=== PATIENT | female | born 1945 | race Caucasian/White ===

== ENCOUNTER → 2018-05-12 13:00 | Outpatient (CLI) | payer MEDICARE, SELFPAY ==
[2018-05-12 14:38] LABS: Free T4, Direct Thyroxine 0.58 ng/dL (0.78-2.19)
[2018-05-12 14:52] LABS: Thyroid Stimulating Hormone 2.02 uIU/mL (0.47-4.68)
[2018-05-14 16:49] LABS: Triiodothyronine T3 Total 56 ng/dL (76-181)
== END ==
PROVIDERS: PCP Internal Medicine; Visit Provider Internal Medicine
DX: E03.9 Hypothyroidism, unspecified (principal)
CPT/HCPCS: 36415; 84439; 84443; 84480

== ENCOUNTER 2019-01-17 19:33 | Inpatient (IN) | payer MEDICARE, SELFPAY ==
--- NOTE | 2019-01-17 19:54 | DI.RAD.S_ITS ---
PROCEDURE: XR HIP W PEL IF DONE LT 2V INDICATIONS: lt hip pain after fall TECHNIQUE: 2 views of the hip were acquired. COMPARISON: None. FINDINGS: Bones: Displaced proximal left femoral neck fracture with mild impaction the distal fracture fragment. Degenerative changes of the right hip. Remainder of the osseous structures appear intact. Soft tissues: No suspicious soft tissue calcifications or masses. IMPRESSION: Displaced, mildly impacted left femoral neck fracture. Dictated by: Jose Elias Mustafa M.D. on 01/17/2019 at 22:24 Approved by: Jose Elias Mustafa M.D. on 01/17/2019 at 22:26
[2019-01-17] MEDS: MORPHINE 4 MG/ML INJ IV ×2 (20:18→21:46)
[2019-01-17 20:34] VITALS: BP 199/75; PULSE 81; RESP 18; TEMP 36.8; O2SAT 99
--- NOTE | 2019-01-17 20:37 | ED_ITS ---
HPI - Extremity Injury (Lower) General Chief Complaint: Extremity Injury, Lower Stated Complaint: Fell today and hurt lft hip Time Seen by Provider: 01/17/19 20:15 Source: patient Mode of arrival: wheelchair Limitations: no limitations History of Present Illness HPI Narrative: 74-year-old female here for evaluation of left hip pain. Patient states that prior to arrival she was in her garage when the broom handle that she was using to sweep the floor broke and she fell forward landing on her left hip. She did not hit her head. No loss of consciousness. Was unable to ambulate afterwards. Sat on the floor for a period of time until a neighbor came over and helped her get into the car. She did arrive here to the emergency department by private vehicle. She is not on anticoagulation. Has not been able to place any pressure on her leg since then. Related Data Home Medications Medication Instructions Recorded Confirmed levothyroxine 75 mcg PO DAILY 01/17/19 01/17/19 Previous Rx's Medication Instructions Recorded paroxetine HCl [Paxil] 30 mg PO QDAY #90 tab 06/12/17 trazodone 50 mg OR HS #20 tab 09/02/17 Allergies Allergy/AdvReac Type Severity Reaction Status Date / Time shellfish derived Allergy Unknown Unverified 09/30/17 13:02 [SHELLFISH DERIVED] Review of Systems Constitutional Denies fever(s) and Denies headache(s) ENT Ears, Nose, Mouth, and Throat: Denies vertigo, Denies dizziness, Denies headache(s) and Denies disequilibrium Cardiovascular Denies chest pain and Denies dyspnea Respiratory Denies dyspnea Gastrointestinal Gastrointestinal: Denies abdominal pain Genitourinary Denies dysuria Musculoskeletal Reports myalgias (Left thigh) and Reports arthralgias (Left hip) Integumentary/Breasts Denies new lesions and Denies rash Neurologic Denies behavioral changes, Denies confusion, Denies vertigo, Denies dizziness, Denies headache(s) and Denies disequilibrium Psychiatric Denies behavioral changes and Denies confusion Hematologic/Lymphatic Denies easy bleeding and Denies easy bruising PFSH Medical History Hypothyroid (Acute) Social History marital status: lives independently: Yes Social History marital status: lives independently: Yes Exam Initial Vital Signs Initial Vital Signs: Vital Signs Temperature 98.2 F 01/17/19 20:34 Pulse Rate 81 01/17/19 20:34 Respiratory Rate 18 01/17/19 20:34 Blood Pressure 199/75 H 01/17/19 20:34 Pulse Oximetry 99 01/17/19 20:34 Const General: cooperative, comfortable, well developed, well groomed and No acute distress Orientation: alert, awake and oriented x3 HENMT Head: normal to inspection and normocephalic Face and sinus: normal facial exam Resp Effort & Inspection: normal respiratory effort Auscultation: clear to auscultation bilaterally Cardio Rate: regular rate Rhythm: regular rhythm Pulses: radial pulses present and dorsalis pedis present on the left GI Inspection: non-distended Palpation: soft and No firm Skin Lesions: no lesions Rashes: no rashes Neuro General: alert and awake Cognition: normal cognition Speech: speech normal Sensory Exam: no sensory deficits noted Extrem Other: Tenderness to palpation around the left hip. Left knee left ankle unremarkable. Psych Appearance: grossly normal and well kempt Course Orders Ordered: ED Orders 01/17/19 19:54 XR hip w pel if done LT 2V Stat 01/17/19 20:22 B Type Natriuretic Peptide Stat Basic Metabolic Panel Stat Complete Blood Count AUTO DIFF Stat Type and Screen Stat Sodium Chloride (Normal Saline 0.9%) 1,000 mls @ 125 mls/hr IV CONT RAVINDER Morphine Sulfate (Morphine) 4 mg IV Q4HR PRN PRN Reason: Pain, Mild (1-3) Ondansetron HCl (Zofran) 4 mg IV Q4HR PRN PRN Reason: Nausea And Vomiting Discontinued Medications Morphine Sulfate (Morphine) 4 mg IV NOW ONE Stop: 01/17/19 20:16 Last Admin: 01/17/19 20:18 Dose: 4 mg Morphine Sulfate (Morphine) 4 mg IV NOW ONE Stop: 01/17/19 21:40 Last Admin: 01/17/19 21:46 Dose: 4 mg Vital Signs - 8 hr 01/17/19 20:34 01/17/19 20:42 01/17/19 21:00 Temperature 98.2 F Pulse Rate 81 79 Pulse Rate [Left Dorsalis Pedis] 78 Respiratory Rate 18 18 Blood Pressure Blood Pressure [Left Arm] 199/75 H 191/82 H Pulse Oximetry 99 98 01/17/19 22:35 Temperature 98.3 F Pulse Rate 88 Pulse Rate [Left Dorsalis Pedis] Respiratory Rate 22 Blood Pressure 204/103 H Blood Pressure [Left Arm] Pulse Oximetry 99 MDM - Extremity Injury (Lower) Lab Data Attestation: I reviewed the patient's lab results. Result diagrams: 01/17/19 20:22 01/17/19 20:22 Lab Results 01/17/19 01/17/19 01/17/19 Range/Units 20:22 20:22 20:22 WBC 7.2 (4.5-11.0) X10^3/uL RBC 4.71 (4.0-5.2) X10^6/uL Hgb 14.7 (12.0-16.0) g/dL Hct 42.6 (36-46) % MCV 90.5 (80-100) fL MCH 31.3 (26-34) PG MCHC 34.6 (30-36) % RDW 12.9 (11.6-14.8) % Plt Count 179 (150-400) X10^3/uL Neut % (Auto) 67.7 (50-75) % Lymph % (Auto) 24.4 L (25-40) % [place] % (Auto) 6.2 (3-14) % Eos % (Auto) 1.0 L (2-4) % Baso % (Auto) 0.7 (0-2) % Neut # (Auto) 4900 (8962-9286) /uL Lymph # (Auto) 1800 (8891-0649) /uL [place] # (Auto) 400 (0-900) /uL Eos # (Auto) 100 (0-450) /uL Baso # (Auto) 0 (0-100) /uL Sodium 134 L (137-145) mmol/L Potassium 3.7 (3.4-5.1) mmol/L Chloride 100 (98-107) mmol/L Carbon Dioxide 28 (22-32) mmol/L BUN 19 H (7-17) mg/dL Creatinine 0.70 (0.52-1.04) mg/dL Estimated GFR > 60.0 (>60) mL/min BUN/Creatinine Ratio 27.1 H (6-22) Glucose 187 H (80-110) mg/dL Calcium 9.4 (8.4-10.2) mg/dL B-Natriuretic Peptide < 100 (<100) Blood Type O Positive Antibody Screen Negative Imaging Data X-ray hip: Radiologist's impression: [address] [address] XRay Report Signed Patient: Sierra Ventura MMR#: [id number] : 5Acct:[id number] Age/Sex: 74 / FDate of Service: 01/17/19 Loc: EP979-0 Accession Number: [id number] Procedure: XR hip w pel if done LT 2V Ordering Provider: Raul Raya D.O. PROCEDURE: XR HIP W PEL IF DONE LT 2V INDICATIONS: lt hip pain after fall TECHNIQUE: 2 views of the hip were acquired. COMPARISON: None. FINDINGS: Bones: Displaced proximal left femoral neck fracture with mild impaction the distal fracture fragment. Degenerative changes of the right hip. Remainder of the osseous structures appear intact. Soft tissues: No suspicious soft tissue calcifications or masses. IMPRESSION: Displaced, mildly impacted left femoral neck fracture. Dictated by: Jose Elias Mustafa M.D. on 01/17/2019 at 22:24 Approved by: Jose Elias Mustafa M.D. on 01/17/2019 at 22:26 MDM Narrative Medical decision making narrative: Patient with what appears to be mechanical fall. X-ray shows a left femoral neck fracture. Discussed the case with Dr. Rylee barrera with Orthopedics who did evaluate the x-rays. He will accept on to his service. Discussed the diagnosis in the admission with the patient her her bedside. Holding orders were placed. Care transition to admitting provider at time of admission. Patient and both expressed understanding and agreement with plan. Discharge Plan Departure Patient Disposition: Admitted As Inpatient Clinical Impression: Fracture of femoral neck, left Qualifiers: Encounter type: initial encounter Fracture type: closed Qualified Code(s): S72.002A - Fracture of unspecified part of neck of left femur, initial encounter for closed fracture Discharge Date/Time: 01/17/19 22:05 Interventions: ED Discharge Assessment Last Done: 01/17/19 22:05 Admit Date/Time: 01/17/19 21:20 Admit Provider: Charles Mares
[2019-01-17 20:42] VITALS: BP 191/82; PULSE 79; RESP 18; O2SAT 98
[2019-01-17 21:00] VITALS: PULSE 78
--- NOTE | 2019-01-17 21:27 | PC.NURSE ---
Pt unable to tolerate bedpan so brief placed per pt request.
[2019-01-17 21:37] LABS: Add Manual Diff / Slide Review NO; Basophils Absolute Auto 0 /uL (0-100); Basophils Percent Auto 0.7 % (0-2); Eosinophils Absolute Auto 100 /uL (0-450); Hematocrit 42.6 % (36-46); Hemoglobin 14.7 g/dL (12.0-16.0); Lymphocytes Absolute Auto 1800 /uL (1100-4500); Lymphocytes Percent Auto 24.4 % (25-40); Mean Corpuscular HGB Conc 34.6 % (30-36); Mean Corpuscular Hemoglobin 31.3 PG (26-34); Mean Corpuscular Volume 90.5 fL (80-100); Monocytes Absolute Auto 400 /uL (0-900); Monocytes Percent Auto 6.2 % (3-14); Neutrophils Absolute Auto 4900 /uL (1500-7000); Neutrophils Percent Auto 67.7 % (50-75); Platelet Count 179 X10^3/uL (150-400); Red Blood Cell Count 4.71 X10^6/uL (4.0-5.2); Red Cell Distribution Width 12.9 % (11.6-14.8); White Blood Cell Count 7.2 X10^3/uL (4.5-11.0)
--- NOTE | 2019-01-17 21:56 | PC.NURSE ---
PT requested pain medication and declined dia catheter at present and may request catheter in future. Pt given 4mg Morphine IV. Dr Raya aware.
[2019-01-17 22:02] LABS: B Type Natriuretic Peptide < 100 (<100)
[2019-01-17 22:22] LABS: BUN Creatinine Ratio 27.1 (6-22); Blood Urea Nitrogen 19 mg/dL (7-17); Calcium 9.4 mg/dL (8.4-10.2); Carbon Dioxide 28 mmol/L (22-32); Chloride 100 mmol/L (98-107); Estimated Glomerular Filt Rate > 60.0 mL/min (>60); Glucose 187 mg/dL (80-110); HEMOLYSIS 19 (0-50); Potassium 3.7 mmol/L (3.4-5.1); Sodium 134 mmol/L (137-145)
[2019-01-17 22:35] VITALS: BP 204/103; PULSE 88; RESP 22; TEMP 36.8; O2SAT 99
[2019-01-17 23:30] VITALS: BP 185/90
[2019-01-18] VITALS (16 sets, daily range): BP systolic 138–182; BP diastolic 69–89; PULSE 75–106; RESP 11–20; TEMP 36.1–37.2; O2SAT 2–100; BMI 24.9; BMI 26.1
[2019-01-18] MEDS: SODIUM CHLORIDE 0.9% 1,000 ML 125 ML IV ×2 (00:03→07:50)
[2019-01-18] MEDS: MORPHINE 4 MG/ML INJ IV ×5 (00:33→16:14)
--- NOTE | 2019-01-18 01:41 | PC.NURSE ---
0030 Pt. admitted to room 217 on 3-11 shift, admit assessment done @ 0000. Pt. C/O left hip pain, medicated with 4 mg. of Morphine IVP. Instructed to call if she needed any assistance, bedrest @ this time. NPO & instructed not to drink or ear anything. Pt. aware of planned surgery today. BLE's cold to touch applied warm blankets. Denies numbness to lt. foot, pedal pulses present, will cont. POC & monitor.
--- NOTE | 2019-01-18 08:46 | P.PN_ITS ---
Subjective Date Patient Seen: 01/18/19 Time Patient Seen: 08:43 Interval history: Patient brought into the hospital last night through the emergency room following a ground level fall in the garage at home. Diagnosis with displaced mildly impacted left femoral neck fracture. Dr. Mares was consulted by phone and reviewed x-ray. They plan is to have patient have a left hip hemiarthroplasty surgery later this afternoon by Dr. Mares. She is NPO at this time. She is receiving MS IV. States her hip pain has improved since admission to the hospital. She has not been out of bed. Exam Vital Signs (past 8 hours): - 01/18/19 00:47 01/18/19 04:00 Temperature 98.9 F Pulse Rate 92 H 85 Respiratory Rate 18 Blood Pressure 182/89 H 161/73 H Pulse Oximetry 93 Oxygen Delivery Method Room Air Narrative Exam Narrative: Alert, oriented in no acute distress lying in bed. Legs. No calf pain or swelling. Pulses symmetrical. Good sensation to touch to lower leg. Objective Labs Result Diagrams: 01/17/19 20:22 01/17/19 20:22 Labs: Laboratory Results - last 24 hr 01/17/19 01/17/19 01/17/19 20:22 20:22 20:22 WBC 7.2 RBC 4.71 Hgb 14.7 Hct 42.6 MCV 90.5 MCH 31.3 MCHC 34.6 RDW 12.9 Plt Count 179 Neut % (Auto) 67.7 Lymph % (Auto) 24.4 L [place] % (Auto) 6.2 Eos % (Auto) 1.0 L Baso % (Auto) 0.7 Neut # (Auto) 4900 Lymph # (Auto) 1800 [place] # (Auto) 400 Eos # (Auto) 100 Baso # (Auto) 0 Sodium 134 L Potassium 3.7 Chloride 100 Carbon Dioxide 28 BUN 19 H Creatinine 0.70 Estimated GFR > 60.0 BUN/Creatinine Ratio 27.1 H Glucose 187 H Calcium 9.4 B-Natriuretic Peptide < 100 Blood Type O Positive Antibody Screen Negative Assessment & Plan Assessment & Plan narrative: Plan. Patient will remain NPO. Continue with morphine IV as needed. Patient is scheduled tentatively for 1600 hours this afternoon for left hip hemiarthroplasty by Dr. Mares. Anticipate that she would be in the hospital for another 1-2 days after surgery and discharged home if stable. Quality VTE Deep Vein Thrombosis/Pulmonary Embolism Present on Admission: No
--- NOTE | 2019-01-18 11:16 | CM.DANOTE ---
DCP: Case received, EMR reviewed and met with patient. Introduced self and role. Was able to obtain health history and living situation from patient. Son as well as ex- were at bedside. DCP assessment completed with information currently available. Patient is a 74 year old female who admitted yesterday evening to the care of the hospitalist team. PCP: Dr. Mar. Payer: [employer] Medicare. Patient came to the hospital via family vehicle secondary to a ground level fall in her garage. She had been sweeping, and the handle broke off causing her to lose balance and land on her left hip. Patient holds diagnosis of a displaced proximal left femoral neck fracture. Patient is scheduled for surgery today at approximately 4:00. She is currently NPO. Met briefly with patient in her room. Awake and laying flat in the bed. She lives alone, her ex- Mauri was in the room, and son, Juanjo. She is independent. Discussed briefly the role of the regional planner, such as the possibility of her needing skilled rehab depending on how she does after surgery. She is hopeful that after she has the surgery she is able to go home. P: DCP to continue to follow closely. She will likely be working with physical therapy after surgery, and will see how she does. Constance Tracy RN/Invoice Clerk
--- NOTE | 2019-01-18 16:31 | DI.RAD.S_ITS ---
PROCEDURE: XR HIP LT 1V INDICATIONS: post op films TECHNIQUE: 2 view(s) of the hip acquired. COMPARISON: [facility], CR, XR HIP W PEL IF DONE LT 2V, 01/17/2019, 20:01. FINDINGS: Bones: Patient is status post left hip arthroplasty, with hardware components in expected positions. The hip joint appears congruent. The visualized bony structures appear intact. Soft tissues: Overlying postoperative changes are noted. No suspicious soft tissue densities. IMPRESSION: Left hip prosthesis in anatomic alignment. Dictated by: Loida Tsai M.D. on 01/18/2019 at 19:11 Approved by: Loida Tsai M.D. on 01/18/2019 at 19:12
[2019-01-18] MEDS: ONDANSETRON 4 MG/2 ML INJ IV (16:41)
[2019-01-18] MEDS: LACTATED RINGERS 1,000 ML 42 ML IV (16:41)
[2019-01-18] MEDS: CEFAZOLIN 2 GM/100 ML FROZ.PIGGY IV (17:15)
--- NOTE | 2019-01-18 17:49 | SUR.OPER ---
Lateral on padded OR bed. Gel axillary roll. Arms secured on padded armboard with pillow supporting top arm. Padded hip positioner braces x4 - anterior and posterior chest and pelvis. Additional gel pad used anterior pelvis. Gel pad under bottom leg from knee to foot and secured with tape over sheet.
--- NOTE | 2019-01-18 18:42 | PM.HP.1 ---
History of Present Illness Date Patient Seen: 01/18/19 Time Patient Seen: 17:00 Chief complaint: Fell today and hurt lft hip Narrative: t patient is a healthy 74-year-old woman who was working in her garage yesterday when she slipped and fell onto her left hip. She had immediate pain and inability to bear weight. She was seen emergency room where x-ray showed displaced femoral neck fracture. She denies having any previous problems with her hip. She denies hitting her head, loss of consciousness or any other injuries. Patient History Medical History Anxiety (Acute) Hypothyroid (Acute) Social History marital status: household members: significant other and none lives independently: Yes Smoking Status: Never smoker alcohol intake: current Family & Social History Social History: household members significant other,none Prior Living Arrangements House lives independently Yes Safety & Behavioral: Feels Safe in Current Yes Environment Been Physically Hurt or No Threatened By a Person Suicidal Ideation Description None Suicide Plan Description No Plan Tobacco & Substance use: Smoking Status Never smoker alcohol intake current alcohol intake frequency holiday/special occasion Substance Use Type does not use Meds Home Medications Medication Instructions Recorded Confirmed Type paroxetine HCl [Paxil] 30 mg PO QDAY #90 tab 06/12/17 01/18/19 Rx trazodone 50 mg OR HS #20 tab 09/02/17 01/18/19 Rx levothyroxine 75 mcg PO DAILY 01/17/19 01/18/19 History Allergies Allergy/AdvReac Type Severity Reaction Status Date / Time shellfish derived Allergy Intermediate Verified 01/17/19 23:52 [SHELLFISH DERIVED] Exam Vital Signs (past 8 hours): - 01/18/19 13:00 01/18/19 16:44 Temperature 98.6 F 97.9 F Pulse Rate 80 77 Respiratory Rate 18 16 Blood Pressure 159/79 H 161/75 H Pulse Oximetry 95 96 Oxygen Delivery Method Room Air Oxygen Flow Rate 0 Const General: cooperative and healthy appearing Orientation: alert and oriented x3 Extrem Other: The patient has shortening and rotation of the left hip. There is significant pain with any hip range of motion of the left hip. There is no significant skin lesions. Of the lower extremities are otherwise fully neurovascularly intact. There is expected swelling. See medical admission for detailed exam. Objective Labs Result Diagrams: 01/17/19 20:22 01/17/19 20:22 Labs: Laboratory Results - last 24 hr 01/17/19 01/17/19 01/17/19 20:22 20:22 20:22 WBC 7.2 RBC 4.71 Hgb 14.7 Hct 42.6 MCV 90.5 MCH 31.3 MCHC 34.6 RDW 12.9 Plt Count 179 Neut % (Auto) 67.7 Lymph % (Auto) 24.4 L [place] % (Auto) 6.2 Eos % (Auto) 1.0 L Baso % (Auto) 0.7 Neut # (Auto) 4900 Lymph # (Auto) 1800 [place] # (Auto) 400 Eos # (Auto) 100 Baso # (Auto) 0 Sodium 134 L Potassium 3.7 Chloride 100 Carbon Dioxide 28 BUN 19 H Creatinine 0.70 Estimated GFR > 60.0 BUN/Creatinine Ratio 27.1 H Glucose 187 H Calcium 9.4 B-Natriuretic Peptide < 100 Blood Type O Positive Antibody Screen Negative Assessment & Plan Assessment & Plan narrative: Displaced left femoral neck fracture. The nature of the fracture and treatment options were discussed with the patient and her family. Replacement with a Press-Fit hemiarthroplasty was recommended. I will be assisting in the surgery with Dr. Hayden acting as the primary physician. The nature of the procedure including the risks, benefits, alternatives, postoperative course and expected outcome were discussed and all questions answered. Time Spent With Patient Time with patient: less than 15 minutes Quality VTE Deep Vein Thrombosis/Pulmonary Embolism Present on Admission: No
--- NOTE | 2019-01-18 18:45 | P.OP_ITS ---
Operative Date/Time/Diagnoses Date of procedure: 01/18/19 Time of procedure: 18:37 Pre-op diagnosis: Left femoral neck fracture Post-op diagnosis: same Procedure & Clinicians Procedure: Left hip endoprosthesis for fracture (CPT code 53660 with special event assistant) Same procedure as scheduled: Yes Indications: 74-year-old female status post fall with displaced comminuted femoral neck fracture (Garden type 4). Discussed nature of condition, differential diagnosis, prognosis, and options. Patient elects to proceed with endoprosthetic replacement for hip fracture and gives informed consent. Surgeon: Magdy Hayden News Commentator: Charles Mares Anesthesia Type: General Operative Notes Closure Type: primary Specimen(s): none sent Prosthetic devices, grafts, tissues, transplants, or devices: Femoral component: [employer]ell [employer]hew Synergy stem, size 14 with a 47 mm +0 endoprosthetic head Estimated Blood Loss (mL): 100 Blood products transfused: none Procedure in detail: After satisfaction induction of anesthetic, and administration of IV antibiotics, the patient was positioned in the lateral decubitus position with all bony prominences well padded and pelvic position secured using a hip semiconductor bonder positioning device. [] hip and lower extremity prepped and draped in the usual sterile fashion, a longitudinal incision was created centered over the greater trochanter and carried sharply through the skin and subcutaneous tissues down to the fascia patricio which was divided longitudinally and retracted with a Charnley retractor. External rotators visualized, cut, tagged, and retracted posteriorly, then the capsule was cut in a T-type fashion with the corners tagged and retracted. Fracture level was identified and femoral neck cut made according to preoperative templating. Femoral head then removed with a corkscrew device. The femoral head was measured and femoral head sizers were placed in the acetabulum and a size 47 mm head had the best fit. Soft tissue then removed off the lateral femoral neck in the lateral neck was entered using a box osteotome. T-handled reamers placed down the canal followed by sequential broaching to 14. The broach was removed, and a permanent size 14 Parnell [employer] Nephew Synergy stem was selected and inserted with excellent position and fixation achieved. The 47 mm endoprosthetic head with the +0 collar was impacted on the femoral component and the hip reduced. After reduction, excellent leg length range of motion and stability characteristics were achieved and maintained. The hip was copiously irrigated, and the capsule repaired with #2 Ethibond, and the piriformis was repaired back to the greater trochanter with the same. Fascia patricio closed with interrupted #1 Ethibond sutures, and the subcutaneous tissues were closed in 2 layers of 0 Vicryl and 2 0 Vicryl. Skin was closed with angelica and sterile dressings applied. The anesthetic was terminated and the patient was taken to postanesthetic recovery in satisfactory condition. Complications: none Condition: stable Disposition: PACU Plan for aftercare: Patient will be admitted to the acute care [facility], and anticipate discharge on postop day 2 or 3 with follow-up in office in 10-14 days. Outpatient physical therapy will be arranged and patient will continue to observe posterior hip precautions. Patient will continue use of postoperative Lovenox for 10 days postop.
[2019-01-18] MEDS: LACTATED RINGERS 1,000 ML 125 ML IV (20:00)
[2019-01-18] MEDS: ASPIRIN EC 81 MG TABLET PO (21:53)
[2019-01-18] MEDS: ACETAMINOPHEN 325 MG TABLET 975 MG PO (21:53)
[2019-01-18] MEDS: TRAZODONE 50 MG TABLET PO (21:53)
[2019-01-19] VITALS (7 sets, daily range): BP systolic 108–149; BP diastolic 57–71; PULSE 64–87; RESP 15–18; TEMP 36.2–37; O2SAT 96–99
[2019-01-19] MEDS: CEFAZOLIN 2 GM/100 ML FROZ.PIGGY IV ×2 (01:21→09:02)
[2019-01-19] MEDS: LACTATED RINGERS 1,000 ML 125 ML IV (04:26)
--- NOTE | 2019-01-19 05:17 | PC.NURSE ---
Addendum entered by Max Faye R.N. 01/19/19 06:55: Spoke w/ pt about keeping pillow between legs to keep hips abducted and reminded her about use of IS. Addendum entered by Max Faye R.N. 01/19/19 05:21: Pt has aquacell dressing on that is clean/dry and intact. Original Note: Pt VSS, lung sounds clear, CMS positive. Pt denies pain or nausea. is at her side through the night. SCD's were applied bilaterally. Pt has dia. Pt is on LR at 125 ml/hr. Asked about pain multiple times through the night and pt. did not want pain meds, but does want some before PT in the AM. I told her that I would come back at 0655 before shift change to give pain meds.
[2019-01-19 05:28] LABS: Hemoglobin 12.8 g/dL (12.0-16.0)
[2019-01-19] MEDS: LEVOTHYROXINE 75 MCG TABLET PO (05:48)
[2019-01-19] MEDS: OXYCODONE IR 5 MG TABLET PO (06:50)
[2019-01-19] MEDS: SODIUM CHLORIDE 0.9% FLUSH 10 ML IV ×2 (08:57→20:57)
[2019-01-19] MEDS: ENOXAPARIN 40 MG/0.4 ML SYRINGE SUBCUT (08:58)
[2019-01-19] MEDS: ACETAMINOPHEN 325 MG TABLET 975 MG PO ×3 (08:59→20:56)
[2019-01-19] MEDS: PARoxetine 10 MG TABLET 30 MG PO (08:59)
[2019-01-19] MEDS: MELOXICAM 7.5 MG TABLET 15 MG PO (09:01)
[2019-01-19] MEDS: ASPIRIN EC 81 MG TABLET PO (09:02)
--- NOTE | 2019-01-19 09:38 | PM.PNPO.1 ---
Subjective Date Patient Seen: 01/19/19 Time Patient Seen: 09:39 Interval history: Pain mild. Denies fever chills. No nausea vomiting. Exam Vital Signs (past 8 hours): - 01/19/19 04:33 01/19/19 07:46 Temperature 97.5 F L 97.2 F L Pulse Rate 79 64 Respiratory Rate 18 16 Blood Pressure 141/67 H 132/62 Pulse Oximetry 98 99 Oxygen Delivery Method Room Air Oxygen Flow Rate 2 Narrative Exam Narrative: Pleasant 74-year-old female resting in bed in no apparent distress. Left hip dressing is clean, dry and intact. Sensation grossly intact distal left lower extremity. Motor functions intact. Left leg is warm and dry. Objective Labs Result Diagrams: 01/19/19 05:00 01/17/19 20:22 Labs: Laboratory Results - last 24 hr 01/19/19 05:00 Hgb 12.8 Hct 38.0 Assessment & Plan Post-op Postoperative Procedures Operation Date: 01/18/19 17:00 Actual Procedures Side Surgeon p Hip Hemiarthroplasty Dionisio-femoral neck fracture Left Magdy Hayden MD Postop day 1. Patient progressing as expected. Mobilize with physical therapy. Likely discharge home in 1-2 days. Posterior hip precautions. Quality VTE Deep Vein Thrombosis/Pulmonary Embolism Present on Admission: No
--- NOTE | 2019-01-19 11:27 | PT.IIE ---
Surgery Performed Operation Date: 01/18/19 17:00 Actual Procedures p Hip Hemiarthroplasty Dionisio-femoral neck fracture(Left) - Magdy Hayden MD Medical History (Last Reviewed 01/18/19 @ 18:43 by Charles Mares MD) Anxiety (Acute) Hypothyroid (Acute) Physical Therapy Inpatient Evaluation/Re-Eval M1 PT/OT-IP Prior Functional Status Start: 01/19/19 14:03 Freq: NEEDED Status: Active Protocol: Document 01/19/19 11:27 AB (Rec: 01/19/19 14:12 AB [id number]) Medical Review Prior Functional Status Medical History Reviewed Yes Communication able to make needs known Mobility and Gait pt stated tht she is independent with all mobilities and ambulation without AD Social History Household Members none Living Arrangements House Number of Floors (Floors) One Floor Number of Stairs To Enter/Railing? 1 step to enter Home Environment Standard Height Toilet Tub/Shower Home Equipment Straight Cane Additional Social History Comment pt stated that his son and ex- will stay with pt and assist her. M2 PT-IP Current Condition Start: 01/19/19 14:03 Freq: NEEDED Status: Active Protocol: Document 01/19/19 11:27 AB (Rec: 01/19/19 14:12 AB [id number]) Physical Therapy Current Condition Current Condition Evaluation Date 01/19/19 Treatment Diagnosis L femoral neck fx s/p L hip hemiarthroplasty; difficulty in walking Onset Date 01/18/19 Precautions Posterior Hip Precautions No Hip Flexion > 90 degrees No Hip Internal Rotation No Hip Adduction Weight Bearing Status Weight Bearing Status Weight Bear as Tolerated M3 PT-IP Subjective Start: 01/19/19 14:03 Freq: NEEDED Status: Active Protocol: Document 01/19/19 11:27 AB (Rec: 01/19/19 14:12 AB [id number]) Subjective Physical Therapy Visit Type Type Initial Evaluation Visit Start Time 11:27 Visit Stop Time 12:22 Total Visit Minutes 55 Number of CHILDBIRTH EDUCATOR Visits 0 Physical Therapy Visit Comments Patient Comments pt agreeable to do PT Therapy Pain Assessment Pain When Pain Assessed At Rest Pain Present Pain Present Pain Reported Location Left Hip Intensity 3 Scale Used Numeric (1 - 10) Pain Management Techniques Apply Cold Timing of Activity with Medications M4 PT-IP Mobility and Gait Start: 01/19/19 14:03 Freq: NEEDED Status: Active Protocol: Document 01/19/19 11:27 AB (Rec: 01/19/19 14:12 AB [id number]) PT-Bed Mobility Assessment Supine to Sit Supine to Sit Moderate Assistance 1 Person Assistance PT-Transfer Assessment Sit to and From Stand Sit to and from Stand Minimal Assistance 1 Person Assistance Use of Upper Extremities Equipment Transfer Assistive Device Gait Belt Front Wheeled Walker Orthotic/Prosthetic Devices or Brace: No Transfers Transfer Destination Chair Transfer Technique pt ambulated using FWW Transfer Ability Level of Assist Minimal Assistance Use of Upper Extremities Comments Mobility Comments pt requires max cues during mobility to adhere to posterior hip precautions Gait Assessment Gait Gait Assistance Required: Minimum Assistance Distance (Feet) 12 Able to Maintain Weight Bearing Status Yes During Gait Assistive Devices Assistive Device Gait Belt Front Wheeled Walker Orthotic/Prosthetic Devices or Brace: No Gait Deviations General Gait Pattern Antalgic Decreased Stride Length Decreased Feet Clearance Step-to Gait Factors Limiting Gait Function Factors Limiting Gait Function Decreased Activity Tolerance Decreased Strength Difficulty Following Directions Limited Range of Motion Pain Poor Balance Poor Safety Awareness Comments Gait Comments pt requires cues for safety and to maintain hip precautions PT-Balance Assessment Sitting Balance and Reactions Static Sitting Balance Ability Good Dynamic Sitting Balance Ability Good Standing Balance and Reactions Static Standing Balance Ability Fair Dynamic Standing Balance Ability Fair Device Used FWW M5 PT-IP Objective Assessments Start: 01/19/19 14:03 Freq: NEEDED Status: Active Protocol: Document 01/19/19 11:27 AB (Rec: 01/19/19 14:12 AB [id number]) Orientation Orientation/Cognition Level of Alertness Alert Orientation Name Place Situation Memory Description Short Term Impaired Strength Lower Extremity Strength Assessment Left Impaired Hip 3-/5 Knee 3+/5 Coordination Assessment Gross Coordination Gross Coordination WNL Sensation Assessment Sensation Gross Sensation WNL Muscle Tone Muscle Tone WNL Yes M6 PT-IP Treatment Start: 01/19/19 14:03 Freq: NEEDED Status: Active Protocol: Document 01/19/19 11:27 AB (Rec: 01/19/19 14:12 AB [id number]) Physical Therapy Treatment Exercises Exercises Quad Sets Heel Slides Education Education Provided Precautions Weight Bearing Status Post-Op Packet Safety M7 PT-IP Assessment and Plan Start: 01/19/19 14:03 Freq: NEEDED Status: Active Protocol: Document 01/19/19 11:27 AB (Rec: 01/19/19 14:12 AB [id number]) PT Summary Assessment and Plan Potential Rehabilitation Potential Good Status of Condition at Evaluation Stable Summary Impairments Pain ROM Strength Balance Coordination Sensation Tone Cognition Bed Mobility Transfers Gait Activity Tolerance Assessment Summary pt requiring min A and max cues during mobility. pt plans to go home with spouse/ son to assist her. will conduct caregiver training and stair climbing training prior to d/c. pt will also require outpt PT when pt goes home. pt also plans to borrow a FWW from her friend initially and then from the [facility] on thursday. Goals Bed Mobility Goal Standby Assistance Transfer Goal Standby Assistance Front Wheeled Walker Gait Goal Standby Assistance Front Wheel Walker Gait Distance 150 Other Goals up/down 1 step SBA using fWW Days to Meet Goals 5 Frequency of Treatment Frequency Of Treatment Twice a Day Treatment Plan Physical Therapy Treatment Plan Bed Mobility Training Transfer Training Gait Training Therapeutic Exercise Balance Retraining Post Op Education Discharge Planning Hot or Cold Pack Neuromuscular Re-ed Coordination Retraining Manual Therapy Recommendations To Nursing Amount of Assist Needed 1 Person Assist Discharge Recommendations PT Discharge Recommendations Home with Assistance Outpatient PT Equipment Needed for Home Before FWW: pt stated that she will Discharge borrow one
--- NOTE | 2019-01-19 11:38 | CM.DPC ---
Addendum entered by Rhonda Vinse LPN 01/19/19 11:44: Will be checking in with pt as her therapy proceeds and to assist with d/c issues and options. She just had surgery last evening to repair her fracture hip/posterior precautions are in place. Original Note: DCP: continued: case received, EMR reviewed. Discussed in Team Rounds. It is noted that pt did identify her post hospital plan as home: per her conversation with NAMAN/Kina Nolasco. She does live alone and it was unclear who might be assisting her in her recovery. PT has been ordered but those eval notes are not yet available. OT is not ordered; did see that sarahy Bates was rounding today for and have left him a vm requesting OT eval as [facility] and OT input will be most helpful in determining the appropriate d/c setting for pt and getting any needed authorization for same.
--- NOTE | 2019-01-19 15:41 | PT.IPTN ---
Surgery Performed Operation Date: 01/18/19 17:00 Actual Procedures p Hip Hemiarthroplasty Dionisio-femoral neck fracture(Left) - Magdy Hayden MD Physical Therapy Treatment Note M2 PT-IP Current Condition Start: 01/19/19 14:03 Freq: NEEDED Status: Active Protocol: Document 01/19/19 11:27 AB (Rec: 01/19/19 14:12 AB [id number]) Physical Therapy Current Condition Current Condition Evaluation Date 01/19/19 Treatment Diagnosis L femoral neck fx s/p L hip hemiarthroplasty; difficulty in walking Onset Date 01/18/19 Precautions Posterior Hip Precautions No Hip Flexion > 90 degrees No Hip Internal Rotation No Hip Adduction Weight Bearing Status Weight Bearing Status Weight Bear as Tolerated M3 PT-IP Subjective Start: 01/19/19 14:03 Freq: NEEDED Status: Active Protocol: Document 01/19/19 15:10 LJ (Rec: 01/19/19 15:41 LJ [id number]) Subjective Physical Therapy Visit Type Type Treatment Note Visit Start Time 15:10 Visit Stop Time 15:34 Total Visit Minutes 24 Number of VARNISH BLENDER Visits 1 Physical Therapy Visit Comments Patient Comments Pt willing to get out of the chair and ambulate in room. Stattes she is anxious about walking and still somewhat unclear about her precautions. Therapy Pain Assessment Pain When Pain Assessed At Rest Pain Present Pain Present Pain Reported M4 PT-IP Mobility and Gait Start: 01/19/19 14:03 Freq: NEEDED Status: Active Protocol: Document 01/19/19 15:10 LJ (Rec: 01/19/19 15:41 [id number]) PT-Bed Mobility Assessment Rolling Type of Rolling Log Rolling Level of Assist Minimal Assistance Sit to Supine Sit to Supine Minimal Assistance Scooting Scooting Up and Down in Bed Contact Guard Assistance PT-Transfer Assessment Sit to and From Stand Sit to and from Stand Contact Guard Assistance Use of Upper Extremities Equipment Transfer Assistive Device Gait Belt Front Wheeled Walker Orthotic/Prosthetic Devices or Brace: No Transfers Transfer Destination Bed Transfer Ability Level of Assist Contact Guard Assistance Use of Upper Extremities Comments Mobility Comments pt requires max cues during mobility to adhere to posterior hip precautions Gait Assessment Gait Gait Assistance Required: Contact Guard Assist Distance (Feet) 25 Able to Maintain Weight Bearing Status Yes During Gait Assistive Devices Assistive Device Gait Belt Front Wheeled Walker Orthotic/Prosthetic Devices or Brace: No Gait Deviations General Gait Pattern Antalgic Decreased Stride Length Decreased Feet Clearance Step-to Gait Factors Limiting Gait Function Factors Limiting Gait Function Decreased Activity Tolerance Decreased Strength Difficulty Following Directions Limited Range of Motion Pain Poor Balance Poor Safety Awareness Comments Gait Comments pt requires cues for safety and to maintain hip precautions. Able to demonstrate understanding of precautions during ambulation and return to bed. M5 PT-IP Objective Assessments Start: 01/19/19 14:03 Freq: NEEDED Status: Active Protocol: Document 01/19/19 11:27 AB (Rec: 01/19/19 14:12 AB [id number]) Orientation Orientation/Cognition Level of Alertness Alert Orientation Name Place Situation Memory Description Short Term Impaired Strength Lower Extremity Strength Assessment Left Impaired Hip 3-/5 Knee 3+/5 Coordination Assessment Gross Coordination Gross Coordination WNL Sensation Assessment Sensation Gross Sensation WNL Muscle Tone Muscle Tone WNL Yes M6 PT-IP Treatment Start: 01/19/19 14:03 Freq: NEEDED Status: Active Protocol: Document 01/19/19 15:10 LJ (Rec: 01/19/19 15:41 LJ [id number]) Physical Therapy Treatment Exercises Exercises Ankle Pumps Gluteal Sets Quad Sets Heel Slides Education Education Provided Precautions Weight Bearing Status Post-Op Packet Safety M7 PT-IP Assessment and Plan Start: 01/19/19 14:03 Freq: NEEDED Status: Active Protocol: Document 01/19/19 15:10 LJ (Rec: 01/19/19 15:41 LJ [id number]) PT Summary Assessment and Plan Potential Rehabilitation Potential Good Status of Condition at Evaluation Stable Summary Impairments Pain ROM Strength Balance Coordination Sensation Tone Cognition Bed Mobility Transfers Gait Activity Tolerance Assessment Summary Pt improved with mobility and understanding of precautions. Still anxious about ambulation but was able to state precautions during mobility step by step. Required CGA to HAYDEE for all ambulation and bed mobility. Goals Bed Mobility Goal Standby Assistance Transfer Goal Standby Assistance Front Wheeled Walker Gait Goal Standby Assistance Front Wheel Walker Gait Distance 150 Other Goals up/down 1 step SBA using fWW Days to Meet Goals 5 Frequency of Treatment Frequency Of Treatment Twice a Day Treatment Plan Physical Therapy Treatment Plan Bed Mobility Training Transfer Training Gait Training Therapeutic Exercise Balance Retraining Post Op Education Discharge Planning Hot or Cold Pack Neuromuscular Re-ed Coordination Retraining Manual Therapy Recommendations To Nursing Amount of Assist Needed 1 Person Assist Discharge Recommendations PT Discharge Recommendations Home with Assistance Outpatient PT Equipment Needed for Home Before FWW: pt stated that she will Discharge borrow one
--- NOTE | 2019-01-19 18:43 | PC.NURSE ---
Evening Shift Note- Patient alert and oriented and able to make needs known to staff. Patient pleasent, calm, and cooperative with care. No complaints of pain or discomfort at this time. No complaints of N/V. Patient sating 98% on roomair. lung sounds clear throughout. Aquacell dressing to left hip C/D/I. Steen care provided. Steen patent and set to gravity to drain. Safety measures in place. Patient calls appropriatly for assistance. Call perea and phone within reach. will continue to monitor.
[2019-01-19] MEDS: TRAZODONE 50 MG TABLET PO (20:57)
[2019-01-20 05:40] VITALS: BP 136/56; PULSE 78; RESP 17; TEMP 37.1; O2SAT 97
[2019-01-20] MEDS: OXYCODONE IR 5 MG TABLET PO (05:49)
--- NOTE | 2019-01-20 06:17 | PC.NURSE ---
Bit Tapper Note: 0000: Sleeping; respirations unlabored. Not disturbed at this time. 0200: Vital signs stable. IV in place in rt AC. Dressing to lt hip intact, with small amt old drainage. SCDs on. Pt denies pain or discomfort at this time. 0600: Awake, ivon care and dia cath care given. Pt states she is having pain in lt hip: medicated with Oxycodone 5mg po.
[2019-01-20] MEDS: MELOXICAM 7.5 MG TABLET 15 MG PO (07:55)
[2019-01-20] MEDS: LEVOTHYROXINE 75 MCG TABLET PO (07:55)
[2019-01-20 08:10] VITALS: BP 109/52; PULSE 77; RESP 16; TEMP 36.9; O2SAT 95
[2019-01-20] MEDS: PARoxetine 10 MG TABLET 30 MG PO (10:05)
[2019-01-20] MEDS: ACETAMINOPHEN 325 MG TABLET 975 MG PO ×3 (10:05→21:40)
[2019-01-20] MEDS: SODIUM CHLORIDE 0.9% FLUSH 10 ML IV ×2 (10:05→21:41)
[2019-01-20] MEDS: ENOXAPARIN 40 MG/0.4 ML SYRINGE SUBCUT (10:06)
--- NOTE | 2019-01-20 11:14 | PM.PNPO.1 ---
Subjective Date Patient Seen: 01/20/19 Time Patient Seen: 11:14 Interval history: Hospital day 3, postop day 2 following left hip femoral neck fracture with hemiarthroplasty done by Dr. Hyaden. Patient is being stable postoperatively. She has worked with PT but feels that she needs a little more strengthening before going home. Her is concerned about having her at home at this time. She does have Steen catheter in place. Exam Vital Signs (past 8 hours): - 01/20/19 05:40 01/20/19 08:10 Temperature 98.8 F 98.4 F Pulse Rate 78 77 Respiratory Rate 17 16 Blood Pressure 136/56 L 109/52 L Pulse Oximetry 97 95 Fraction of Inspired Oxygen 21 Oxygen Delivery Method Room Air Oxygen Flow Rate 0 Narrative Exam Narrative: Alert, oriented no acute distress resting in chair. Legs. Bulky dressing to left lateral hip is dry without drainage or inflammation. No calf pain or swelling. Pulses symmetrical. Patient able to do full leg extension from sitting position. Objective Labs Result Diagrams: 01/19/19 05:00 01/17/19 20:22 Assessment & Plan Post-op Postoperative Procedures Operation Date: 01/18/19 17:00 Actual Procedures Side Surgeon p Hip Hemiarthroplasty Dionisio-femoral neck fracture Left Magdy Hayden MD Plan: Patient will work with PT more today. DC Steen catheter. She will need appointment at [facility] in [place] and also follow-up appointment at our office in 2 weeks. Anticipate discharge home tomorrow if she is stable. Quality VTE Deep Vein Thrombosis/Pulmonary Embolism Present on Admission: No
--- NOTE | 2019-01-20 11:17 | P.PN_ITS ---
Subjective Date Patient Seen: 01/20/19 Time Patient Seen: 11:14 Interval history: Hospital day 3, postop day 2 following left hip femoral neck fracture with hemiarthroplasty done by Dr. Hayden. Patient is being stable postoperatively. She has worked with PT but feels that she needs a little more strengthening before going home. Her is concerned about having her at home at this time. She does have Steen catheter in place. Exam Vital Signs (past 8 hours): - 01/20/19 05:40 01/20/19 08:10 Temperature 98.8 F 98.4 F Pulse Rate 78 77 Respiratory Rate 17 16 Blood Pressure 136/56 L 109/52 L Pulse Oximetry 97 95 Fraction of Inspired Oxygen 21 Oxygen Delivery Method Room Air Oxygen Flow Rate 0 Narrative Exam Narrative: Alert, oriented no acute distress resting in chair. Legs. Bulky dressing to left lateral hip is dry without drainage or inflammation. No calf pain or swelling. Pulses symmetrical. Patient able to do full leg extension from sitting position. Objective Labs Result Diagrams: 01/19/19 05:00 01/17/19 20:22 Assessment & Plan Post-op Postoperative Procedures Operation Date: 01/18/19 17:00 Actual Procedures Side Surgeon p Hip Hemiarthroplasty Dionisio-femoral neck fracture Left Magdy Hayden MD Plan: Patient will work with PT more today. DC Steen catheter. She will need appointment at [facility] in [place] and also follow-up a ppointment at our office in 2 weeks. Anticipate discharge home tomorrow if she is stable. Quality VTE Deep Vein Thrombosis/Pulmonary Embolism Present on Admission: No
[2019-01-20 11:20] VITALS: BP 148/74; PULSE 101; RESP 16; TEMP 37; O2SAT 99
--- NOTE | 2019-01-20 11:42 | OT.IP.EVAL ---
Current Diagnoses Fracture of unspecified part of neck of left femur, initial encounter for closed fracture (01/17/19) Surgery Performed Operation Date: 01/18/19 17:00 Actual Procedures p Hip Hemiarthroplasty Dionisio-femoral neck fracture(Left) - Magdy Hayden MD Past Medical History (Last Reviewed 01/18/19 @ 18:43 by Charles Mares MD) Anxiety (Acute) Hypothyroid (Acute) Occupational Therapy Inpatient Evaluation/Re-Eval M1 PT/OT-IP Prior Functional Status Start: 01/19/19 14:03 Freq: NEEDED Status: Active Protocol: Document 01/20/19 11:42 PJM (Rec: 01/20/19 17:21 PJM [id number]) Medical Review Prior Functional Status Medical History Reviewed Yes Communication WNL Mobility and Gait Pt states she is independent with all mobility and ambulation without AD. Activities of Daily Living and IADL's Pt indep with all self care, IADLS, driving. Social History Household Members none Living Arrangements House Number of Floors (Floors) One Floor Number of Stairs To Enter/Railing? 1 step to enter Home Environment Standard Height Toilet Tub/Shower Home Equipment Straight Cane Employment Status Retired Additional Social History Comment Pt states that her ex- will stay with her and assist PRN.Son coming from [place] over weekend and can also assist PRN. M2 OT-IP Current Condition Start: 01/20/19 17:00 Freq: Status: Active Protocol: Document 01/20/19 11:42 PJM (Rec: 01/20/19 17:21 PJM [id number]) Occupational Therapy Current Condition Current Condition Evaluation Date 01/20/19 Treatment Diagnosis decreased self care, mobility s/p L hip fx with hemiathroplasty Diagnosis Onset Date 01/18/19 Post Operative Precautions Posterior Hip Precautions No Hip Flexion > 90 degrees Weight Bearing Status Weight Bearing Status Weight Bear as Tolerated M3 OT- IP Subjective and Pain Start: 01/20/19 17:00 Freq: Status: Active Protocol: Document 01/20/19 11:42 PJM (Rec: 01/20/19 17:21 PJM [id number]) OT- Subjective Occupational Therapy Visit Type Type Initial Evaluation Visit Start Time 10:30 Visit Stop Time 11:42 Total Visit Minutes 72 Occupational Therapy Visit Comments Patient Comments I have to remember all these rules. Patient/Caregiver Goals to return to independence, living alone OT Pain Assessment Pain When Pain Assessed After Treatment Pain Present Pain Present Pain Reported Location Left Hip Intensity 4 Scale Used Numeric (1 - 10) Description Aching Acute Pain Behaviors Guarding Management Techniques Distraction Re-positioning Timing of Activity with Medications M4 OT- IP ADL's Start: 01/20/19 17:00 Freq: Status: Active Protocol: Document 01/20/19 11:42 PJM (Rec: 01/20/19 17:21 PJ [id number]) OT [id number] General Evaluation Self-Feeding Ability Independent OT ADL-Grooming General Evaluation Grooming Ability Standby Assistance Areas Needing Assistance Combing/Brushing Hair Comments OT Grooming Comments using wheelchair van operator first responder standing at sink, one slight loss of balance backwards, pt aware and self corrected; needs verbal cues to avoid twisting. OT ADL-Oral Care General Eval Oral Care Ability Independent Comments Oral Care Comments standing at sink OT ADL-Dressing General Eval Upper Body Dressing Ability Independent Lower Body Dressing Ability Minimal Assistance Areas Needing Assistance Bra Pull-Over Shirt Underpants/Brief Pants/Shorts Socks Assistive Devices Dressing Assistive Devices Long Handled Shoe Horn Commercial Construction Superintendent Sock Aid Comments OT Dressing Comments Began education re: adapted ADL techniques with log brander, sock aid, long shoe horn provided. Pt needs mod verbal cues and intermittent min assist for unfamiliar techniques. OT ADL-Toileting General Evaluation Toileting Ability Independent Comments OT Toileting Comments after education re: posterior hip precautions; ex to obtain BSC for use over toilet from [employer] OT ADL-Bathing Bathing Type Bathing Type Sponge Bath Devices Bathing Equipment Long Handled Sponge or Food Production Machine Operator Held Shower Sprayer Tub Transfer Bench Rinse Free Shampoo Cap Comments OT Bathing Comments to be assessed tomorrow; ex to obtain transfer tub bench. Provided education re: tub transfer bench use, precautions and methods to keep floor dry with shower curtain adaptations and use of shampoo cap. M5 OT- IP IADL's Start: 01/20/19 17:00 Freq: Status: Active Protocol: Document 01/20/19 11:42 PJM (Rec: 01/20/19 17:21 PJ [email or web address]) OT-Instrumental Activities of Daily Living Deficits IADL Deficits Identified Deficits Home Safety Awareness Awareness of Need for Assistance at Home Good Awareness Ability to Problem Solve Emergency Able to Problem Solve Situations Medication Management Medication Management No Deficits Identified Money Management Money Management No Deficits Identified Meal Preparation Meal Preparation Caregiver Provides Assist Meal Preparation Comments family to assist until pt able Wood Window And Door Craftsman Wood Window And Door Craftsman Caregiver Provides Assist Wood Window And Door Craftsman Comments family to assist until pt able Driving Driving Caregiver Provides Assist Driving Comments family to assist until pt able M6 OT- IP Functional Cognition Start: 01/20/19 17:00 Freq: Status: Active Protocol: Document 01/20/19 11:42 PJM (Rec: 01/20/19 17:21 PJ [id number]) Cognitive Factors Limiting Selfcare Function Cognitive Ability Level of Alertness Alert Attention Span Ability Capable of Focused Attention Capable of Sustained Attention Ability to Follow Commands Able to Follow Multi-Step Commands Memory Description No Deficits Noted Safety Awareness No Deficits Noted Problem Solving Ability Needs Assist to Identify Solutions Cognitive Comments Cognitive Assessment Comments Cognition appears WFL. Pt needs min cues to avoid twisting and follow new posterior hip precautions. OT- Vision and Hearing OT- Hearing Assessment OT- Hearing Assessment WFL OT- Vision Assessment Visual Acuity WFL Glasses All The Time M7 OT- IP Mobility and Balance Start: 01/20/19 17:00 Freq: Status: Active Protocol: Document 01/20/19 11:42 PJM (Rec: 01/20/19 17:21 PJ [email or web address]) OT-Transfer Assessment Sit to and From Stand Sit to and from Stand Standby Assistance 1 Person Assistance Transfers Transfer Ability Standby Assistance 1 Person Assistance Technique Transfer Destination Chair Toilet Transfer Technique Stand Step Pivot Devices Transfer Assistive Devices Gait Belt Front Wheeled Walker OT- Gait Assessment Gait Gait Assistance Required: Standby Assistance Distance (Feet) 30 Assistive Devices Assistive Device Gait Belt Front Wheeled Walker Comments Gait Ability Comments Provided education/ verbal cues for gait sequence. OT- Balance Assessment Sitting Balance and Reactions Static Sitting Balance Ability Good Dynamic Sitting Balance Ability Good Standing Balance and Reactions Static Standing Balance Ability Good Dynamic Standing Balance Ability Fair Comments Other Balance Tests/Deviations/Treatment one mild loss of balance : backwards while standing at sink drying hair, pt self corrected M8 OT- IP Objective Assessments Start: 01/20/19 17:00 Freq: Status: Active Protocol: Document 01/20/19 11:42 PJM (Rec: 01/20/19 17:21 PJ [id number]) OT Gross Range of Motion Upper Extremity Range of Motion Assessment Within Functional Limits OT Strength Upper Extremity Strength Assessment Within Functional Limits Hand Test Consultant Strength Hand Dominance Right OT- Coordination Assessment Comments Coordination Comments BUE WNL OT-Muscle Tone Assessment Muscle Tone WNL Yes OT Sensation Assessment Comments Summary Comments BUE WNL per pt Edema Edema Absent M9 OT- IP Assessment and Plan Start: 01/20/19 17:00 Freq: Status: Active Protocol: Document 01/20/19 11:42 PJM (Rec: 01/20/19 17:21 PJM [email or web address]) OT Summary Assessment and Plan Potential Rehabilitation Potential Excellent Analytic Complexity at Evaluation Low Summary OT Impairments Pain Balance Functional Mobility Dressing Toileting Bathing Toilet Transfers Shower Transfers Progress Towards Goals Progressing Toward Goals Assessment Summary Low complexity OT assessment completed on this 74 yr old woman s/p R hip fx with hemiarthroplasty with emphasis on new posterior hip precautions. Pt and ex educated re: precautions, minimum seat heights, optimal chair and clothing selection, adapted techniques for dressing, bathing, toileting, bathroom safety and dressing equipment options. Pt will benefit from one additional OT visit for for further education re: adapted techniques for showering, dressing and car transfers tomorrow. Pt plans to discharge home with 24 hr assist from ex and son PRN. Goals Grooming Goal Independent Dressing Goal Independent Long Handled Shoe Horn Commercial Construction Superintendent Sock Aid Toileting Goal Independent Bathing Goal Standby Assistance Hand Held Shower Sprayer Long Handled Sponge or [place] Toilet Transfer Goal Independent Bedside Commode Shower Transfer Goal Standby Assistance Patient/Caregiver Education Goal Demonstrate Post-Op Precautions Demonstrate Energy Conservation and Pacing Caregiver Independent Assisting Patient OT-Other Goals Pt will use bedside commode over toilet at home to increase height and provide armrests. Days to Meet Goals 1 Frequency of Treatment Frequency Of Treatment Once a Day Treatment Plan OT Treatment Plan ADL Training Functional Mobility Patient/Family Education Discharge Planning Discharge Recommendations OT Discharge Recommendations Home with / Assist Home Equipment Needs transfer tub bench, BSC over toilet, handheld shower lower body dressing equipt provided
--- NOTE | 2019-01-20 12:13 | PT.IPTN ---
Current Diagnoses Fracture of unspecified part of neck of left femur, initial encounter for closed fracture (01/17/19) Surgery Performed Operation Date: 01/18/19 17:00 Actual Procedures p Hip Hemiarthroplasty Dionisio-femoral neck fracture(Left) - Magdy Hayden MD Physical Therapy Treatment Note M2 PT-IP Current Condition Start: 01/19/19 14:03 Freq: NEEDED Status: Active Protocol: Document 01/19/19 11:27 AB (Rec: 01/19/19 14:12 AB [id number]) Physical Therapy Current Condition Current Condition Evaluation Date 01/19/19 Treatment Diagnosis L femoral neck fx s/p L hip hemiarthroplasty; difficulty in walking Onset Date 01/18/19 Precautions Posterior Hip Precautions No Hip Flexion > 90 degrees No Hip Internal Rotation No Hip Adduction Weight Bearing Status Weight Bearing Status Weight Bear as Tolerated M3 PT-IP Subjective Start: 01/19/19 14:03 Freq: NEEDED Status: Active Protocol: Document 01/20/19 11:30 HH (Rec: 01/20/19 12:13 [id number]) Subjective Physical Therapy Visit Type Type Treatment Note Visit Start Time 11:30 Visit Stop Time 12:00 Total Visit Minutes 30 Number of RUG INSPECTOR HELPER Visits 0 Physical Therapy Visit Comments Patient Comments Agreeable to mobilize with PT Therapy Pain Assessment Pain When Pain Assessed During Mobility Pain Present Pain Present Pain Reported Location Left Hip Intensity 2 Scale Used Numeric (1 - 10) Pain Management Techniques Apply Cold Timing of Activity with Medications M4 PT-IP Mobility and Gait Start: 01/19/19 14:03 Freq: NEEDED Status: Active Protocol: Document 01/20/19 11:30 HH (Rec: 01/20/19 12:13 [id number]) PT-Transfer Assessment Sit to and From Stand Sit to and from Stand Standby Assistance 1 Person Assistance Use of Upper Extremities Equipment Transfer Assistive Device Gait Belt Front Wheeled Walker Orthotic/Prosthetic Devices or Brace: No Transfers Transfer Destination Chair Transfer Ability Level of Assist Standby Assistance 1 Person Assistance Use of Upper Extremities Comments Mobility Comments Pt is able to recall 3/3 precautions. SBA for transfers . Gait Assessment Gait Gait Assistance Required: Standby Assistance Distance (Feet) 300 Able to Maintain Weight Bearing Status Yes During Gait Assistive Devices Assistive Device Gait Belt Front Wheeled Walker Orthotic/Prosthetic Devices or Brace: No Gait Deviations General Gait Pattern Antalgic Decreased Stride Length Decreased Feet Clearance Step-to Gait Factors Limiting Gait Function Factors Limiting Gait Function Decreased Activity Tolerance Decreased Strength Difficulty Following Directions Limited Range of Motion Pain Poor Balance Poor Safety Awareness Comments Gait Comments Pt amb with FWW x [address]. able to improve her step length which is close to her baseline gait speed. Stair Climbing Assessment Evaluation Level of Assist On Stairs Contact Guard Assistance Devices Stair Climbing Assistive Devices Front Wheel Walker Technique/Endurance Stair Climbing Direction Ascend and Descend Stair Climbing Technique Step to Step Number of Steps Climbed 1 Stair Climbing Set # Repetitions (reps) 1 Comments Stair Climbing Comments cues for stair managment (up with good and down with bad) M5 PT-IP Objective Assessments Start: 01/19/19 14:03 Freq: NEEDED Status: Active Protocol: Document 01/19/19 11:27 AB (Rec: 01/19/19 14:12 AB [id number]) Orientation Orientation/Cognition Level of Alertness Alert Orientation Name Place Situation Memory Description Short Term Impaired Strength Lower Extremity Strength Assessment Left Impaired Hip 3-/5 Knee 3+/5 Coordination Assessment Gross Coordination Gross Coordination WNL Sensation Assessment Sensation Gross Sensation WNL Muscle Tone Muscle Tone WNL Yes M6 PT-IP Treatment Start: 01/19/19 14:03 Freq: NEEDED Status: Active Protocol: Document 01/20/19 11:30 HH (Rec: 01/20/19 12:13 [id number]) Physical Therapy Treatment Exercises Exercises Ankle Pumps Gluteal Sets Quad Sets Heel Slides Education Education Provided Precautions Weight Bearing Status Post-Op Packet Safety M7 PT-IP Assessment and Plan Start: 01/19/19 14:03 Freq: NEEDED Status: Active Protocol: Document 01/20/19 11:30 HH (Rec: 01/20/19 12:13 [id number]) PT Summary Assessment and Plan Potential Rehabilitation Potential Good Status of Condition at Evaluation Stable Summary Impairments Pain ROM Strength Balance Coordination Sensation Tone Cognition Bed Mobility Transfers Gait Activity Tolerance Assessment Summary Pt progress very well with therapy who is able to amb 300 ft today and negotiate 1 step with CGA. Pt also improves her gait speed and step length that close to her baseline. Denies pain and discomfort after session. She will be safe to d/c home with her friend Mauri's assistance once she is medically stable Goals Bed Mobility Goal Standby Assistance Transfer Goal Standby Assistance Front Wheeled Walker Gait Goal Standby Assistance Front Wheel Walker Gait Distance 500 Other Goals up/down 1 step SBA using fWW Days to Meet Goals 5 Frequency of Treatment Frequency Of Treatment Twice a Day Treatment Plan Physical Therapy Treatment Plan Bed Mobility Training Transfer Training Gait Training Therapeutic Exercise Balance Retraining Post Op Education Discharge Planning Hot or Cold Pack Neuromuscular Re-ed Coordination Retraining Manual Therapy Recommendations To Nursing Amount of Assist Needed 1 Person Assist Discharge Recommendations PT Discharge Recommendations Home with Assistance Outpatient PT Equipment Needed for Home Before FWW: pt stated that she will Discharge get FWW, tub bench/ shower seat from [employer]
[2019-01-20 15:53] VITALS: BP 147/66; PULSE 87; RESP 18; TEMP 36.5; O2SAT 97
--- NOTE | 2019-01-20 16:23 | PT.IPTN ---
Current Diagnoses Fracture of unspecified part of neck of left femur, initial encounter for closed fracture (01/17/19) Surgery Performed Operation Date: 01/18/19 17:00 Actual Procedures p Hip Hemiarthroplasty Dionisio-femoral neck fracture(Left) - Magdy Hayden MD Physical Therapy Treatment Note M2 PT-IP Current Condition Start: 01/19/19 14:03 Freq: NEEDED Status: Active Protocol: Document 01/19/19 11:27 AB (Rec: 01/19/19 14:12 AB [id number]) Physical Therapy Current Condition Current Condition Evaluation Date 01/19/19 Treatment Diagnosis L femoral neck fx s/p L hip hemiarthroplasty; difficulty in walking Onset Date 01/18/19 Precautions Posterior Hip Precautions No Hip Flexion > 90 degrees No Hip Internal Rotation No Hip Adduction Weight Bearing Status Weight Bearing Status Weight Bear as Tolerated M3 PT-IP Subjective Start: 01/19/19 14:03 Freq: NEEDED Status: Active Protocol: Document 01/20/19 15:15 CLB (Rec: 01/20/19 16:23 CLB [id number]) Subjective Physical Therapy Visit Type Type Treatment Note Visit Start Time 15:15 Visit Stop Time 15:45 Total Visit Minutes 30 Number of AGRICULTURAL RESEARCH DIRECTOR Visits 1 Physical Therapy Visit Comments Patient Comments pt agreeable to do PT Therapy Pain Assessment Pain When Pain Assessed During Mobility Pain Present Pain Present Pain Reported Location Left Hip Intensity 2 Scale Used Numeric (1 - 10) Pain Management Techniques Apply Cold Timing of Activity with Medications M4 PT-IP Mobility and Gait Start: 01/19/19 14:03 Freq: NEEDED Status: Active Protocol: Document 01/20/19 15:15 CLB (Rec: 01/20/19 16:23 CLB [id number]) PT-Bed Mobility Assessment Supine to Sit Supine to Sit Standby Assistance Sit to Supine Sit to Supine Standby Assistance PT-Transfer Assessment Sit to and From Stand Sit to and from Stand Standby Assistance 1 Person Assistance Use of Upper Extremities Equipment Transfer Assistive Device Gait Belt Front Wheeled Walker Orthotic/Prosthetic Devices or Brace: No Transfers Transfer Destination Chair Toilet Transfer Ability Level of Assist Standby Assistance 1 Person Assistance Use of Upper Extremities Comments Mobility Comments Pt is able to recall 3/3 precautions. SBA for transfers . Gait Assessment Gait Gait Assistance Required: Standby Assistance Distance (Feet) 300 Able to Maintain Weight Bearing Status Yes During Gait Assistive Devices Assistive Device Gait Belt Front Wheeled Walker Orthotic/Prosthetic Devices or Brace: No Gait Deviations General Gait Pattern Antalgic Decreased Stride Length Decreased Feet Clearance Step-to Gait Factors Limiting Gait Function Factors Limiting Gait Function Decreased Activity Tolerance Decreased Strength Difficulty Following Directions Limited Range of Motion Pain Poor Balance Comments Gait Comments Pt able to ambulate SBA in solomon with steady gait and good safety awareness. M5 PT-IP Objective Assessments Start: 01/19/19 14:03 Freq: NEEDED Status: Active Protocol: Document 01/19/19 11:27 AB (Rec: 01/19/19 14:12 AB [id number]) Orientation Orientation/Cognition Level of Alertness Alert Orientation Name Place Situation Memory Description Short Term Impaired Strength Lower Extremity Strength Assessment Left Impaired Hip 3-/5 Knee 3+/5 Coordination Assessment Gross Coordination Gross Coordination WNL Sensation Assessment Sensation Gross Sensation WNL Muscle Tone Muscle Tone WNL Yes M6 PT-IP Treatment Start: 01/19/19 14:03 Freq: NEEDED Status: Active Protocol: Document 01/20/19 15:15 CLB (Rec: 01/20/19 16:23 CLB [id number]) Physical Therapy Treatment Exercises Exercises Ankle Pumps Gluteal Sets Quad Sets Heel Slides Supine Hip Abduction Education Education Provided Precautions Safety M7 PT-IP Assessment and Plan Start: 01/19/19 14:03 Freq: NEEDED Status: Active Protocol: Document 01/20/19 15:15 CLB (Rec: 01/20/19 16:23 CLB [id number]) PT Summary Assessment and Plan Summary Impairments Pain ROM Strength Balance Coordination Sensation Tone Cognition Bed Mobility Transfers Gait Activity Tolerance Assessment Summary Pt requires SBA for all bed mobility and transfers. Pt required Min A with donning pants but was able to perform own pericare. Pt recalled 3/3 precaution. Goals Bed Mobility Goal Standby Assistance Transfer Goal Standby Assistance Front Wheeled Walker Gait Goal Standby Assistance Front Wheel Walker Gait Distance 500 Other Goals up/down 1 step SBA using fWW Days to Meet Goals 5 Frequency of Treatment Frequency Of Treatment Twice a Day Treatment Plan Physical Therapy Treatment Plan Bed Mobility Training Transfer Training Gait Training Therapeutic Exercise Balance Retraining Post Op Education Discharge Planning Hot or Cold Pack Neuromuscular Re-ed Coordination Retraining Manual Therapy Recommendations To Nursing Amount of Assist Needed 1 Person Assist Discharge Recommendations PT Discharge Recommendations Home with Assistance Outpatient PT Equipment Needed for Home Before FWW: pt stated that she will Discharge get FWW, tub bench/ shower seat from [employer]
--- NOTE | 2019-01-20 18:57 | PC.NURSE ---
Up with PT at beginning of shift, back to chair and dressed. reclined in chair and using personal laptop. A/O x4, 97%RA, LS clear, denies SOB. Left hip aquacell drsg CDI with sm old shadow drainage, denies pain medication, rates pain 1-2/10. BT+ denies nausea, 1PA FWW to ambulate. RAC SL. Call light in reach.
[2019-01-20 20:30] VITALS: BP 136/61; PULSE 81; RESP 18; TEMP 36.9; O2SAT 95
[2019-01-20] MEDS: TRAZODONE 50 MG TABLET PO (21:40)
[2019-01-21 00:20] VITALS: BP 126/56; PULSE 81; RESP 17; TEMP 36.8; O2SAT 97
[2019-01-21] MEDS: LEVOTHYROXINE 75 MCG TABLET PO (05:36)
[2019-01-21 06:00] VITALS: BP 139/65; PULSE 76; RESP 17; TEMP 36.9; O2SAT 95
[2019-01-21] MEDS: OXYCODONE IR 5 MG TABLET PO (06:10)
[2019-01-21 08:30] VITALS: BP 152/74; PULSE 74; RESP 16; TEMP 37.1; O2SAT 99
[2019-01-21] MEDS: ACETAMINOPHEN 325 MG TABLET 975 MG PO (08:55)
[2019-01-21] MEDS: SODIUM CHLORIDE 0.9% FLUSH 10 ML IV (08:55)
[2019-01-21] MEDS: PARoxetine 10 MG TABLET 30 MG PO (08:55)
[2019-01-21] MEDS: ENOXAPARIN 40 MG/0.4 ML SYRINGE SUBCUT (08:56)
[2019-01-21] MEDS: MELOXICAM 7.5 MG TABLET 15 MG PO (09:04)
--- NOTE | 2019-01-21 11:31 | PT.IPTN ---
Current Diagnoses Fracture of unspecified part of neck of left femur, initial encounter for closed fracture (01/17/19) Surgery Performed Operation Date: 01/18/19 17:00 Actual Procedures p Hip Hemiarthroplasty Dionisio-femoral neck fracture(Left) - Magdy Hayden MD Physical Therapy Treatment Note M2 PT-IP Current Condition Start: 01/19/19 14:03 Freq: NEEDED Status: Active Protocol: Document 01/19/19 11:27 AB (Rec: 01/19/19 14:12 AB [id number]) Physical Therapy Current Condition Current Condition Evaluation Date 01/19/19 Treatment Diagnosis L femoral neck fx s/p L hip hemiarthroplasty; difficulty in walking Onset Date 01/18/19 Precautions Posterior Hip Precautions No Hip Flexion > 90 degrees No Hip Internal Rotation No Hip Adduction Weight Bearing Status Weight Bearing Status Weight Bear as Tolerated M3 PT-IP Subjective Start: 01/19/19 14:03 Freq: NEEDED Status: Active Protocol: Document 01/21/19 11:27 PRAFUL (Rec: 01/21/19 11:31 PRAFUL [id number]) Subjective Physical Therapy Visit Type Type Treatment Note Visit Start Time 10:10 Visit Stop Time 10:30 Total Visit Minutes 20 Physical Therapy Visit Comments Patient Comments pt agreeable to do PT Therapy Pain Assessment Pain When Pain Assessed During Mobility Pain Present Pain Present Pain Reported M4 PT-IP Mobility and Gait Start: 01/19/19 14:03 Freq: NEEDED Status: Active Protocol: Document 01/21/19 11:27 LJ (Rec: 01/21/19 11:31 LJ [id number]) PT-Transfer Assessment Sit to and From Stand Sit to and from Stand Standby Assistance 1 Person Assistance Use of Upper Extremities Equipment Transfer Assistive Device Gait Belt Front Wheeled Walker Transfers Transfer Destination Chair Transfer Ability Level of Assist Standby Assistance 1 Person Assistance Use of Upper Extremities Comments Mobility Comments Pt SBA for all mobility. Recalls precautions. Gait Assessment Gait Gait Assistance Required: Standby Assistance Distance (Feet) 200 Able to Maintain Weight Bearing Status Yes During Gait Assistive Devices Assistive Device Gait Belt Front Wheeled Walker Orthotic/Prosthetic Devices or Brace: No Gait Deviations General Gait Pattern Antalgic Decreased Stride Length Decreased Feet Clearance Step-to Gait Factors Limiting Gait Function Factors Limiting Gait Function Decreased Activity Tolerance Decreased Strength Difficulty Following Directions Limited Range of Motion Pain Poor Balance Comments Gait Comments Pt able to ambulate SBA in solomon with steady gait and good safety awareness. M5 PT-IP Objective Assessments Start: 01/19/19 14:03 Freq: NEEDED Status: Active Protocol: Document 01/19/19 11:27 AB (Rec: 01/19/19 14:12 AB [id number]) Orientation Orientation/Cognition Level of Alertness Alert Orientation Name Place Situation Memory Description Short Term Impaired Strength Lower Extremity Strength Assessment Left Impaired Hip 3-/5 Knee 3+/5 Coordination Assessment Gross Coordination Gross Coordination WNL Sensation Assessment Sensation Gross Sensation WNL Muscle Tone Muscle Tone WNL Yes M6 PT-IP Treatment Start: 01/19/19 14:03 Freq: NEEDED Status: Active Protocol: Document 01/20/19 15:15 CLB (Rec: 01/20/19 16:23 CLB [id number]) Physical Therapy Treatment Exercises Exercises Ankle Pumps Gluteal Sets Quad Sets Heel Slides Supine Hip Abduction Education Education Provided Precautions Safety M7 PT-IP Assessment and Plan Start: 01/19/19 14:03 Freq: NEEDED Status: Active Protocol: Document 01/21/19 11:27 LJ (Rec: 01/21/19 11:31 LJ [id number]) PT Summary Assessment and Plan Potential Rehabilitation Potential Good Status of Condition at Evaluation Stable Summary Impairments Pain ROM Strength Balance Coordination Sensation Tone Cognition Bed Mobility Transfers Gait Activity Tolerance Assessment Summary Pt requires SBA for mobility, gait and transfers. Able to ambulate safely in hallway with steady gait. Goals Bed Mobility Goal Standby Assistance Transfer Goal Standby Assistance Front Wheeled Walker Gait Goal Standby Assistance Front Wheel Walker Gait Distance 500 Other Goals up/down 1 step SBA using fWW Days to Meet Goals 5 Frequency of Treatment Frequency Of Treatment Twice a Day Treatment Plan Physical Therapy Treatment Plan Bed Mobility Training Transfer Training Gait Training Therapeutic Exercise Balance Retraining Post Op Education Discharge Planning Hot or Cold Pack Neuromuscular Re-ed Coordination Retraining Manual Therapy Recommendations To Nursing Amount of Assist Needed Standby Assistance Discharge Recommendations PT Discharge Recommendations Home with Assistance Outpatient PT
[2019-01-21 11:57] VITALS: BP 152/73; PULSE 70; RESP 14; TEMP 36.8; O2SAT 100
--- NOTE | 2019-01-21 14:15 | PC.NURSE ---
Pt discharged to home. Accompanied by significant other, Mauri. Pt allowed time to ask discharge questions, reported she understood instructions. Pt teach back posterior hip repair precautions. All discharge instructions placed in her folder. Pt will self admin Lovenox injections for 7 days post DC. Pt teach back injection instructions and technique with SO Mauri present. Pt stated Mauri will likely admin injection as he has helped family members in the past. Pt understands she is to make a follow up appt with provider. Dressing to left hip dry and intact. Areas of drainage on dressing borders marked. Educated pt to monitor these borders using small mirror at home, if drainage exceeds borders, or symptoms of infection as described on DC paperwork to notify provider.
--- NOTE | 2019-01-21 15:49 | CM.DPC ---
DCP: continued: Case discussed in Team Rounds with therapists noting pt was doing well and a d/c order to home in place. Pt did leave for home as per her plan.
--- NOTE | 2019-02-01 09:58 | PM.DS.1 ---
History of Present Illness Date Patient Seen: 01/21/19 Time Patient Seen: 07:58 Chief complaint: Fell today and hurt lft hip Narrative: 74-year-old female status post fall with displaced comminuted femoral neck fracture (Garden type 4). Discussed nature of condition, differential diagnosis, prognosis, and options. Patient elects to proceed with endoprosthetic replacement for hip fracture and gives informed consent. Discharge Providers Date of admission: 01/17/19 21:20 Primary care physician: Mauri Mar MD Consults: 01/18/19 19:26 Consult to Discharge Planning Routine Comment: Consult to Physical Therapy Evaluate & Treat Comment: Physician Instructions: post op SALAS protocol Consult to Respiratory Therapy Evaluate & Treat Comment: Physician Instructions: Evaluate and treat 01/19/19 12:46 Consult to Occupational Therapy Evaluate & Treat Comment: Physician Instructions: Evaluate and treat Discharge provider: Angela Syed PA-C Summary Discharge Diagnosis: s/p Left hip endoprosthesis for fracture Thyroid disease Exam Vital Signs (past 8 hours): Fraction of Inspired Oxygen 21 Oxygen Delivery Method Room Air Oxygen Flow Rate 0 Objective Labs Result Diagrams: 01/19/19 05:00 01/17/19 20:22 Discharge Plan Discharge Plan Patient Disposition: Home Discharge Med Rec/Prescriptions Prescriptions: New acetaminophen 325 mg Tablet 975 mg PO TID Qty: 60 RF: 0 meloxicam [Mobic] 7.5 mg Tablet 15 mg PO 0800 Qty: 30 RF: 0 oxycodone 5 mg Tablet 5 mg PO Q4-6H PRN (Reason: Pain, Moderate (4-6)) Qty: 60 RF: 0 Continued paroxetine HCl [Paxil] 30 MG tablet 30 mg PO QDAY Qty: 90 RF: 0 trazodone 50 MG tablet 50 mg OR HS Qty: 20 RF: 0 levothyroxine 75 mcg Tablet 75 mcg PO DAILY RF: 0 Follow up/Referrals: Mauri Mar MD [Primary Care Provider] - Magdy Hayden MD [Physician] - (FOLLOW UP PER PREVIOUSLY SCHEDULED) Provider Discharge Instructions Diet: Diet as Tolerated Activity: Weight bear as tolerated. Posterior hip precautions. Cold/Heat Therapy: Ice packs as needed. Skin/Wound/Dressing Care Report to your healthcare provider any signs of infection, such as:: chills, fever, night sweats, unusual drainage and unusual redness Dressing: Dressing is to remain in place until 2 week post operative visit. Please call the office if dressing becomes saturated. Visit Report/Discharge Packet Instructions: DI for Hip Replacement, Enoxaparin Injection Stand Alone Forms: Surgery Discharge Discharge Data Primary Care Provider: Mauri Mar Attending Provider: Charles Mares Admit Date/Time: 01/17/19 21:20 Discharges patient from system. Discharge Date/Time: 01/21/19 14:20 Quality VTE Deep Vein Thrombosis/Pulmonary Embolism Present on Admission: No
--- NOTE | 2019-02-03 09:12 | P.DS_ITS ---
History of Present Illness Date Patient Seen: 01/21/19 Time Patient Seen: 09:12 Chief complaint: Fell today and hurt lft hip Narrative: Please see HPI previously recorded in chart. Discharge Providers Date of admission: 01/17/19 21:20 Discharge Date: 01/21/19 Primary care physician: Mauri Mar MD Consults: 01/18/19 19:26 Consult to Discharge Planning Routine Comment: Consult to Physical Therapy Evaluate & Treat Comment: Physician Instructions: post op SALAS protocol Consult to Respiratory Therapy Evaluate & Treat Comment: Physician Instructions: Evaluate and treat 01/19/19 12:46 Consult to Occupational Therapy Evaluate & Treat Comment: Physician Instructions: Evaluate and treat Discharge provider: Hayley Hanna PA-C Summary Discharge Diagnosis: s/p left hemiarthroplasty Hospital Course: Patient is a 74 year old female who had a ground level fall on 01/17 with subsequent displaced femoral neck fracture. She presented to [facility] later that day through the ED where fracture was identified. Orthopedics was consulted and discussed the nature of condition, differential diagnosis, prognosis, and options. Patient elected to proceed with endoprosthetic replacement for hip fracture and gives informed consent. She was taken to the operating room 7/ with Dr. Hayden for hemiarthroplasty which she tolerated well with no complications. After surgery she was transferred to the acute care floor where she continued to progress well postoperatively. POD#1 she was slow to mobilize with physical therapy and Steen catheter remained in place. POD#2 she continued to work with PT but felt she was not strong enough to d/c to home and Steen was discontinued without issue. POD#3 she has continued to move well with PT and her feels confident as caregiver. She has had good pain control over the course of her hospitalization. She is being discharged with supply of Lovenox, which is continued until 10 days post op, and educated in its use. She is currently medically stable for discharge to home. Status at Discharge Cognitive/behavioral status at discharge: oriented Functional status at discharge: uses cane/walker Overall status at discharge: patient is progressing back to baseline Exam Vital Signs (past 8 hours): Fraction of Inspired Oxygen 21 Oxygen Delivery Method Room Air Oxygen Flow Rate 0 Narrative Exam Narrative: Pleasant 74 year old female resting comfortably in bed. Alert and oriented in no acute distress. Dressing in place is clean, dry, and intact. Sensation intact to light touch in LLE. Patient able to flex/extend the knee and ankle. Pedal pulses symmetric. Claves soft and compressible. Objective Labs Result Diagrams: 01/19/19 05:00 01/17/19 20:22 Discharge Plan Discharge Plan Patient Disposition: Home Discharge Med Rec/Prescriptions Prescriptions: New acetaminophen 325 mg Tablet 975 mg PO TID Qty: 60 RF: 0 meloxicam [Mobic] 7.5 mg Tablet 15 mg PO 0800 Qty: 30 RF: 0 oxycodone 5 mg Tablet 5 mg PO Q4-6H PRN (Reason: Pain, Moderate (4-6)) Qty: 60 RF: 0 Continued paroxetine HCl [Paxil] 30 MG tablet 30 mg PO QDAY Qty: 90 RF: 0 trazodone 50 MG tablet 50 mg OR HS Qty: 20 RF: 0 levothyroxine 75 mcg Tablet 75 mcg PO DAILY RF: 0 Follow up/Referrals: Mauri Mar MD [Primary Care Provider] - Magdy Hayden MD [Physician] - (FOLLOW UP PER PREVIOUSLY SCHEDULED) Provider Discharge Instructions Diet: Diet as Tolerated Activity: Weight bear as tolerated. Posterior hip precautions. Cold/Heat Therapy: Ice packs as needed. Skin/Wound/Dressing Care Report to your healthcare provider any signs of infection, such as:: chills, fever, night sweats, unusual drainage and unusual redness Dressing: Dressing is to remain in place until 2 week post operative visit. Please call the office if dressing becomes saturated. Visit Report/Discharge Packet Instructions: DI for Hip Replacement, Enoxaparin Injection Stand Alone Forms: Surgery Discharge Discharge Data Primary Care Provider: Mauri Mar Attending Provider: Charles Mares Admit Date/Time: 01/17/19 21:20 Discharges patient from system. Discharge Date/Time: 01/21/19 14:20 Quality VTE Deep Vein Thrombosis/Pulmonary Embolism Present on Admission: No
== END 2019-01-21 14:20 | disposition home or self-care (01) | DRG 470 ==
LOC: ED 20:39 → AC 21:21
PROVIDERS: Orthopaedic Surgery; Admitting Provider Orthopaedic Surgery; Emergency Provider Emergency Medicine; Family Provider Family Medicine; PCP Internal Medicine; Visit Provider Orthopaedic Surgery
PROC: 0SRS0JZ Replacement of Left Hip Joint, Femoral Surface with Synthetic Substitute, Open Approach (ICD-10-PCS; CPT 27125; principal; 2019-01-18 17:00)
DX: S72.002A Fracture of unspecified part of neck of left femur, initial encounter for closed fracture (principal); F41.9 Anxiety disorder, unspecified; E03.9 Hypothyroidism, unspecified; W01.0XXA Fall on same level from slipping, tripping and stumbling without subsequent striking against object, initial encounter; Y92.015 Private garage of single-family (private) house as the place of occurrence of the external cause
CPT/HCPCS: 36415; 36591; 73501; 73502; 80048; 83880; 85014; 85018; 85025; 86850; 86900; 86901; 94760; 96374; 96376; 97110; 97116; 97161; 97165; 97530; 97535; 99283; 99284; C1776; J0690; J1100; J1650; J2270; J2405; J2704; J3010

== ENCOUNTER → 2020-09-14 11:00 | Outpatient (CLI) | payer MEDICARE, SELFPAY ==
[2019-01-18] VITALS: BMI 24.9
[2020-09-14] MEDS: COVID-19 VACC #1, MRNA(MOD) 100 MCG/0.5 ML VIAL IM (11:08)
== END ==
PROVIDERS: Family Provider Family Medicine; PCP Internal Medicine; Visit Provider Internal Medicine
DX: Z23 Encounter for immunization (principal)
CPT/HCPCS: 0011A; 91301

== ENCOUNTER → 2020-10-12 10:19 | Outpatient (CLI) | payer MEDICARE, SELFPAY ==
[2019-01-18] VITALS: BMI 24.9
[2020-10-12] MEDS: COVID-19 VACC #2, MRNA(MOD) 100 MCG/0.5 ML VIAL IM (10:31)
== END ==
PROVIDERS: Family Provider Family Medicine; PCP Internal Medicine; Visit Provider Internal Medicine
DX: Z23 Encounter for immunization (principal)
CPT/HCPCS: 0012A; 91301

== ENCOUNTER → 2024-10-05 16:11 | Outpatient (CLI) | payer MEDICARE, SELFPAY ==
[2019-01-18] VITALS: BMI 24.9
[2024-10-05 17:15] LABS: Add Manual Diff / Slide Review NO; Basophils Absolute Auto 100 /uL (0-100); Eosinophils Absolute Auto 200 /uL (0-450); Eosinophils Percent Auto 2.1 % (2-4); Hemoglobin 14.8 g/dL (12.0-16.0); Lymphocytes Absolute Auto 3200 /uL (1100-4500); Lymphocytes Percent Auto 42.6 % (25-40); Mean Corpuscular HGB Conc 34.3 % (30-36); Mean Corpuscular Hemoglobin 30.8 PG (26-34); Mean Corpuscular Volume 89.7 fL (80-100); Monocytes Absolute Auto 600 /uL (0-900); Monocytes Percent Auto 7.8 % (3-14); Neutrophils Absolute Auto 3500 /uL (1500-7000); Neutrophils Percent Auto 46.5 % (50-75); Platelet Count 172 X10^3/uL (150-400); White Blood Cell Count 7.4 X10^3/uL (4.5-11.0)
[2024-10-05 17:28] LABS: BUN Creatinine Ratio 23.7 (6-22); Blood Urea Nitrogen 14 mg/dL (7-17); Calcium 9.4 mg/dL (8.4-10.2); Carbon Dioxide 24 mmol/L (22-32); Chloride 103 mmol/L (98-107); Cholesterol 218 mg/dL (140-199); Estimated Glomerular Filt Rate > 60 mL/min (>60); Glucose 87 mg/dL (80-110); HDL Cholesterol 65 mg/dL (40-60); HEMOLYSIS 30 (0-50); LDL Cholesterol Calculated 138 mg/dL (<100); Potassium 4.4 mmol/L (3.4-5.1); Sodium 134 mmol/L (137-145); Triglycerides 76 mg/dL (35-150)
[2024-10-05 17:57] LABS: TSH w/ Reflex to FT4 < 0.02 uIU/mL (0.47-4.68)
[2024-10-05 19:41] LABS: Free T4, Direct Thyroxine 1.22 ng/dL (0.78-2.19)
== END ==
PROVIDERS: PCP Nurse Practitioner Family; Referring Provider Nurse Practitioner Family; Visit Provider Nurse Practitioner Family
DX: E03.9 Hypothyroidism, unspecified (principal); R42 Dizziness and giddiness; F32.A Depression, unspecified; E78.5 Hyperlipidemia, unspecified
CPT/HCPCS: 36415; 80048; 80061; 84439; 84443; 85025

== ENCOUNTER → 2024-11-10 10:33 | Outpatient (CLI) | payer MEDICARE, SELFPAY ==
[2019-01-18] VITALS: BMI 24.9
[2024-11-10 12:46] LABS: Free T4, Direct Thyroxine 0.74 ng/dL (0.78-2.19)
[2024-11-10 13:00] LABS: Thyroid Stimulating Hormone 0.115 uIU/mL (0.47-4.68)
== END ==
PROVIDERS: PCP Nurse Practitioner Family; Referring Provider Nurse Practitioner Family; Visit Provider Nurse Practitioner Family
DX: R79.89 Other specified abnormal findings of blood chemistry (principal)
CPT/HCPCS: 36415; 84439; 84443; 84481

== ENCOUNTER → 2024-12-15 13:42 | Outpatient (CLI) | payer MEDICARE, SELFPAY ==
[2019-01-18] VITALS: BMI 24.9
== END ==
PROVIDERS: PCP Nurse Practitioner Family; Referring Provider Nurse Practitioner Family; Visit Provider Nurse Practitioner Family
DX: E03.9 Hypothyroidism, unspecified (principal)
CPT/HCPCS: 36415; 84443

== ENCOUNTER 2025-01-23 14:28 | Emergency (ER) | payer MEDICARE, SELFPAY ==
[2019-01-18] VITALS: BMI 24.9
[2025-01-23] VITALS (9 sets, daily range): BP systolic 171–211; BP diastolic 85–95; PULSE 72–117; RESP 16–21; TEMP 36.4; O2SAT 95–98; BMI 25.7
--- NOTE | 2025-01-23 14:34 | DI.CT.S_ITS ---
PROCEDURE: CT HEAD/BRAIN WO CON INDICATIONS: fall unwitnessed TECHNIQUE: Noncontrast 4.5 mm thick angled axial sections acquired from the foramen magnum to the vertex, with coronal and sagittal reformats. For radiation dose reduction, the following was used: automated exposure control, adjustment of mA and/or kV according to patient size. COMPARISON: None. FINDINGS: Image quality: Diagnostic. CSF spaces: Basal cisterns are patent. No extra-axial fluid collections. The ventricles are symmetric in size and shape. Brain: No intracranial bleeds or mass effect. There is cerebral volume loss, with resultant ventricular and sulcal prominence. There are periventricular and deep white matter chronic small vessel ischemic changes. There is intracranial internal carotid artery atherosclerosis. Skull and face: Calvarium and visualized facial bones appear intact, without suspicious lesions. Sinuses: Visualized sinuses and mastoids are clear. IMPRESSION: No acute intracranial pathology. Dictated by: Yunier Lai M.D. on 01/23/2025 at 15:11 Approved by: Yunier Lai M.D. on 01/23/2025 at 15:11
--- NOTE | 2025-01-23 14:34 | DI.CT.S_ITS ---
PROCEDURE: CT CERVICAL SPINE WO CON INDICATIONS: fall unwitnessed TECHNIQUE: Noncontrast 3 mm thick sections acquired from the skull base to the T4 level. Sagittal and coronal reformats were then constructed. For radiation dose reduction, the following was used: automated exposure control, adjustment of mA and/or kV according to patient size. COMPARISON: None. FINDINGS: Image quality: Excellent. Bones: No fractures or dislocations. Visualized superior ribs are intact. Mild to moderate, multilevel degenerative disc disease and diffuse facet arthrosis. This is most prominent at C5-6, C6-7. Soft tissues: Prevertebral soft tissues are normal in thickness. No paravertebral hematomas. No apical pneumothoraces. IMPRESSION: No displaced fracture or traumatic subluxation. Dictated by: Yunier Lai M.D. on 01/23/2025 at 15:12 Approved by: Yunier Lai M.D. on 01/23/2025 at 15:13
--- NOTE | 2025-01-23 14:34 | DI.RAD.S_ITS ---
PROCEDURE: XR HIP W PEL IF DONE LT 2V INDICATIONS: fall with shortened leg TECHNIQUE: 3 views of the hip were acquired. COMPARISON: None. FINDINGS: Bones: No fractures or dislocations. No suspicious bony lesions. The visualized pelvic ring appears intact. Well-aligned, intact left hip radha arthroplasty without hardware complication. Soft tissues: No suspicious soft tissue calcifications or masses. IMPRESSION: Well-aligned, intact left hip radha arthroplasty without hardware complication. Dictated by: Yunier Lai M.D. on 01/23/2025 at 15:10 Approved by: Yunier Lai M.D. on 01/23/2025 at 15:10
--- NOTE | 2025-01-23 15:10 | ED.FALL ---
HPI - Fall General Chief Complaint: Fall Stated Complaint: GLF Source: patient and EMS Mode of arrival: EMS History of Present Illness HPI Narrative: 80y F history of left hip replacement 5 years ago walked over us taken her friend's backyard and fell backwards now unable to move her left hip and leg prior to arrival via EMS. She denies headache, dizziness, loss of consciousness, chest pain, shortness of breath, but did receive fentanyl fist 75 mcg prior to arrival here in the ER. Other than what is stated 14 point review of system is negative. Related Data Home Medications ?Medication ?Instructions ?Recorded ?Confirmed oxybutynin chloride 5 mg tablet 5 mg PO DAILY 09/02/24 11/17/24 Previous Rx's ?Medication ?Instructions ?Recorded acetaminophen 325 mg tablet 975 mg (3 x 325 mg) PO TID #60 tabs 01/21/19 trazodone 50 mg tablet 50 mg PO HS #90 tabs 09/14/24 paroxetine HCl 40 mg tablet 40 mg PO DAILY #60 tabs 12/14/24 thyroid (pork) 30 mg tablet (STEAK TENDERIZER MACHINE 30 mg PO DAILY #90 tabs 12/16/24 Thyroid) Allergies Allergy/AdvReac Type Severity Reaction Status Date / Time shellfish derived (SHELLFISH Allergy Intermediate Verified 01/23/25 14:36 DERIVED) Review of Systems Review of Systems ROS Unobtainable: All systems reviewed & are unremarkable except as noted in HPI and below Patient History Medical History (Updated 01/23/25 @ 17:50 by Tomy Ryan DO) Left hip pain BPPV (benign paroxysmal positional vertigo) Cervical pain (neck) Hypertension Hyperlipidemia Dizziness Chicken pox Cataracts, bilateral Insomnia Depression Anxiety Hypothyroid Surgical History (Updated 09/25/24 @ 15:54 by Ashtyn Guerra) Anesthesia Fracture of femoral neck, left (~12/2018) Family History (Updated 09/25/24 @ 16:01 by Ashtyn Guerra) Father Diverticulitis Mother Cancer Sister Diabetes mellitus Social History marital status: household members: none lives independently: Yes alcohol intake: current Smoking Status: Former smoker alcohol intake frequency: holidays/special occasions only Exam Narrative Exam Narrative: GENERAL: [80] year old patient appears stated age. Well-developed patient, in mild distress. HEAD: Atraumatic. Normocephalic. EYES: Pupils equal round and reactive. Extraocular motions intact. No scleral icterus. No injection or drainage. ENT: Nose without bleeding, purulent drainage. Throat without erythema, tonsillar hypertrophy or exudate. Airway patent. NECK: Trachea midline. Non tender CARDIOVASCULAR: Regular rate and rhythm without murmurs, gallops, or rubs. RESPIRATORY: Clear to auscultation. Breath sounds equal bilaterally. No wheezes, rales, or rhonchi. GASTROINTESTINAL: Abdomen soft, non-tender, nondistended. EXTREMITIES: Left hip enter to palpate but stable on exam. Motor sensory intact +2 DP +2 PT cap refill less than 2 seconds BACK: Nontender without deformity or crepitance. No flank tenderness. NEURO: AOx3. GCS 15 nonfocal neuro exam SKIN: No rash or erythema of visible areas Initial Vital Signs Initial Vital Signs: Vital Signs Temperature 97.6 F 01/23/25 14:36 Pulse Rate 72 01/23/25 14:36 Respiratory Rate 16 01/23/25 14:36 Blood Pressure 211/95 H 01/23/25 14:36 Pulse Oximetry 98 01/23/25 14:36 Oxygen Delivery Method Room Air 01/23/25 14:36 Course Orders Ordered: ED Orders 01/23/25 14:34 CT cervical spine wo con Stat CT head/brain wo con Stat XR hip w pel LT 2V Stat CBC Auto Diff [Complete Blood Count AUTO DIFF] Stat CMP [Comprehensive Metabolic Panel] Stat Discontinued Medications Morphine Sulfate (Morphine 4 Mg/Ml Inj) 4 mg IV NOW ONE Stop: 01/23/25 14:38 Vital Signs Vital signs: Vital Signs - 8 hr 01/23/25 14:36 Temperature 97.6 F Pulse Rate 72 Respiratory Rate 16 Blood Pressure 211/95 H Pulse Oximetry 98 Oxygen Delivery Method Room Air MDM - Fall Imaging Data Extremity x-ray #1: Radiologist's Impression: [address] [address] XRay Report Signed Patient: Sierra Ventura MR#: [id number] : 1945 Acct:[id number] Age/Sex: 80 / F Date of Service: 01/23/25 Loc: ED Accession Number: [id number] Procedure: XR hip w pel LT 2V Ordering Provider: Silke Brock PA-C PROCEDURE: XR HIP W PEL IF DONE LT 2V INDICATIONS: fall with shortened leg TECHNIQUE: 3 views of the hip were acquired. COMPARISON: None. FINDINGS: Bones: No fractures or dislocations. No suspicious bony lesions. The visualized pelvic ring appears intact. Well-aligned, intact left hip radha arthroplasty without hardware complication. Soft tissues: No suspicious soft tissue calcifications or masses. IMPRESSION: Well-aligned, intact left hip radha arthroplasty without hardware complication. CT scan - abdomen/pelvis: Radiologist's Impression: [place] [id number] CT Scan Report Signed Patient: Sierra Ventura MR#: [id number] : 1945 Acct:[id number] Age/Sex: 80 / F Date of Service: 01/23/25 Loc: ED Accession Number: [id number] Procedure: CT pelvis wo con Ordering Provider: Tomy Ryan D.O. PROCEDURE: CT PEL WO CON INDICATIONS: L hip pain and replacement TECHNIQUE: Noncontrast 3 mm axial sections acquired through the bony pelvis, with coronal and sagittal reformatting. COMPARISON: [facility], CR, XR HIP W PEL LT 2V, 01/23/2025, 14:36. FINDINGS: Image quality: Diagnostic. Bones: Status post left total hip arthroplasty. There is an acute oblique fracture extending through the mid left femoral diaphysis near the distal margin of the femoral stem component of arthroplasty hardware. No significant displacement. Remainder of the visualized osseous structures appear intact. Lower lumbar spondylosis. Degenerative changes of the right hip. Soft tissues: No joint effusion visualized. Urinary bladder appears unremarkable. No pelvic sidewall adenopathy. Colonic diverticulosis without acute diverticulitis. Normal appendix. No pathologic pelvic free fluid. IMPRESSION: Status post left total hip arthroplasty with oblique fracture extending through the distal margins of the femoral hardware component at the level of the mid left femoral diaphysis. Other chronic/non-acute findings as above. MDM Narrative Medical decision making narrative: Vital signs, nurse triage note, medication list, previous ER visits, and all imaging studies reviewed. Pelvic CT showed status post left total hip arthroplasty with oblique fracture extending through the distal margins of the femoral hardware component at the level of the mid left femoral diaphysis. Case discussed with Dr. Douglas Burns orthopedics unable to do orthopedic surgery here and will need to be transferred as there is concern that it is uncemented and there is fracture around the stem site in a may need revision of the femoral component. Differential diagnosis fracture, dislocation, contusion. Case d/w Dr.Guston Ara OLIVER who has accepted pt for transfer to [facility]. Discharge Plan Departure Patient Disposition: [facility] Clinical Impression: Closed hip fracture Qualifiers: Encounter type: initial encounter Laterality: left Qualified Code(s): S72.002A - Fracture of unspecified part of neck of left femur, initial encounter for closed fracture Prescriptions: No Action trazodone 50 mg tablet 50 mg PO HS Qty: 90 3RF paroxetine HCl 40 mg tablet 40 mg PO DAILY Qty: 60 0RF thyroid (pork) [STEAK TENDERIZER MACHINE Thyroid] 30 mg tablet 30 mg PO DAILY Qty: 90 1RF oxybutynin chloride 5 mg tablet 5 mg PO DAILY acetaminophen 325 mg Tablet 975 mg PO TID Qty: 60 0RF Referrals: Susie Mckeon, [employer] [Primary Care Provider, Family Practice]
[2025-01-23 15:17] LABS: Add Manual Diff / Slide Review NO; Hematocrit 41.2 % (36-46); Hemoglobin 14.2 g/dL (12.0-16.0); Lymphocytes Absolute Auto 2500 /uL (1100-4500); Mean Corpuscular HGB Conc 34.4 % (30-36); Mean Corpuscular Hemoglobin 31.8 PG (26-34); Mean Corpuscular Volume 92.3 fL (80-100); Platelet Count 187 X10^3/uL (150-400)
[2025-01-23] MEDS: MORPHINE 4 MG/ML INJ IV (15:33)
--- NOTE | 2025-01-23 16:06 | PC.NURSE ---
GAUGE AND WEIGH MACHINE OPERATOR Note: Patient's neighbor Renetta called ([phone]) to speak with patient. Patient gave consent to call Renetta back and let her know that she was okay, she would call if she needed anything and she had her phone number. I called Renetta back and gave her the message.
[2025-01-23 16:09] LABS: Alanine Aminotransferase 19 IU/L (<35); Albumin 4.3 g/dL (3.5-5.0); Albumin Globulin Ratio 1.5 (1.0-2.8); Alkaline Phosphatase 67 U/L (38-126); Blood Urea Nitrogen 15 mg/dL (7-17); Calcium 9.1 mg/dL (8.4-10.2); Carbon Dioxide 25 mmol/L (22-32); Chloride 100 mmol/L (98-107); Estimated Glomerular Filt Rate > 60 mL/min (>60); Globulin 2.8 g/dL (1.7-4.1); Glucose 106 mg/dL (70-99); HEMOLYSIS < 15 (0-50); Potassium 3.6 mmol/L (3.4-5.1); Sodium 135 mmol/L (137-145); Total Protein 7.1 g/dL (6.3-8.2)
[2025-01-23] MEDS: HYDROMORPHONE 1 MG INJ IV (17:06)
--- NOTE | 2025-01-23 18:04 | PC.NURSE ---
Pts friend Amrita Hernandez as contact point for pt, can be contacted for transfer updates and will bring belonings tomorrow but not for release of medical information. #[phone]
[2025-01-23] MEDS: ONDANSETRON 4 MG/2 ML INJ IV (21:00)
== END 2025-01-23 21:08 | disposition short-term general hospital (02) ==
PROVIDERS: Student in an Organized Health Care Education/Training Program; Emergency Provider Family Medicine; PCP Nurse Practitioner Family
DX: S72.002A Fracture of unspecified part of neck of left femur, initial encounter for closed fracture (principal); W18.30XA Fall on same level, unspecified, initial encounter; Z96.642 Presence of left artificial hip joint; M25.552 Pain in left hip
CPT/HCPCS: 36415; 70450; 72125; 72192; 73502; 80053; 85025; 96374; 96375; 96376; 99283; 99284; J1171; J2270; J2405

== ENCOUNTER → 2025-04-05 10:27 | Outpatient (CLI) | payer MEDICARE, SELFPAY ==
[2019-01-18] VITALS: BMI 24.9
--- NOTE | 2025-04-05 10:32 | DI.RAD.S_ITS ---
PROCEDURE: XR FEMUR LT MIN 2V INDICATIONS: ROUTINE TECHNIQUE: 2 views of the femur were acquired. COMPARISON: None. FINDINGS: Bones: Lateral plate and screws transfix an old proximal femoral fracture which is solidly unified in anatomic alignment In anatomic alignment Joints: Left hip hemiarthroplasty is anatomically aligned without loosening or infection. Mild/moderate patellofemoral tibiofemoral degeneration noted . Soft tissues: No soft tissue abnormality. IMPRESSION: Left hip hemiarthroplasty unremarkable. Other chronic findings as described Dictated by: Tomy Mccain M.D. on 04/06/2025 at 12:51 Approved by: Tomy Mccain M.D. on 04/06/2025 at 12:52
== END ==
PROVIDERS: Family Provider Nurse Practitioner Family; PCP Nurse Practitioner Family
DX: M97.02XD Periprosthetic fracture around internal prosthetic left hip joint, subsequent encounter (principal)
CPT/HCPCS: 73552

== ENCOUNTER → 2025-04-06 11:58 | Outpatient (CLI) | payer MEDICARE, SELFPAY ==
[2019-01-18] VITALS: BMI 24.9
--- NOTE | 2025-04-06 11:59 | DI.RAD.S_ITS ---
PROCEDURE: XR CERVICAL SPINE 2V OR 3V INDICATIONS: neck pain TECHNIQUE: 3 view(s) of the cervical spine were acquired. COMPARISON: None. FINDINGS: Bones: No fractures or dislocations to the T1 level. The lateral masses of C1 appear intact on the odontoid view. No suspicious bony lesions. Multilevel degenerative disc space narrowing most severe at C6-7. Trace retrolisthesis of C5 on C6. Anterior osteophyte at C5 is most prominent. Multilevel uncovertebral arthropathy. Soft tissues: No prevertebral soft tissue swelling. IMPRESSION: Multilevel degenerative changes most severe at C6-7. Dictated by: Leandra Montague M.D. on 04/06/2025 at 16:27 Approved by: Leandra Montague M.D. on 04/06/2025 at 16:28
== END ==
PROVIDERS: Family Provider Nurse Practitioner Family; PCP Nurse Practitioner Family; Referring Provider Nurse Practitioner Family; Visit Provider Nurse Practitioner Family
DX: M50.323 Other cervical disc degeneration at C6-C7 level (principal); M47.812 Spondylosis without myelopathy or radiculopathy, cervical region; M25.78 Osteophyte, vertebrae
CPT/HCPCS: 72040